=== PATIENT | male | born 1940 | race Caucasian/White ===

== ENCOUNTER 2016-05-31 17:13 | Inpatient (IN) | payer OTHER ==
--- NOTE | 2016-05-31 17:24 | EDPHY ---
H & P Time Seen by Provider: 05/31/16 17:13 HPI/ROS: CHIEF COMPLAINT: Weakness, and fever HISTORY OF PRESENT ILLNESS: Patient self catheterizes and has previous sepsis from UTI. He and his were just in [place] in [facility], and got back yesterday, he was able to walk to the airport and participate in vacation. Today he is much weaker and cannot sit up or get out of bed without assistance. EMS brings him to the emergency department with severe generalized weakness. Associated with fever. No urinary or respiratory symptoms. Weakness is not focal and is generalized in severe. REVIEW OF SYSTEMS: Eye: no change in vision ENT: no sore throat Cardiac: no chest pain or syncope Pulmonary: no cough or SOB Abdomen: no vomiting, diarrhea, abdominal pain Musculoskeletal: no back pain Skin: no rash Neuro: no headache Constitutional: Fever : Chronically self catheterizes from bladder dysfunction, unchanged. A comprehensive 10 point review of systems is otherwise negative aside from elements mentioned in the history of present illness. PAST MEDICAL HISTORY: History and physical dated 12/25/[address] Cannon reviewed by myself. Includes coronary artery disease with stenting, previous UTI, hypertension and GERD, hyperlipidemia, bipolar disorder, bladder cancer, vasectomy, lumbar laminectomy. Social history: Here with his . In [place] they did not go to the jungle and were [place] at the resort, "at the bar and at the pool" General Appearance: Alert and conversant, cooperative. Eyes: No scleral icterus. ENT, Mouth: Dry mucous membranes Respiratory: Normal respiratory effort, breath sounds equal, lungs are clear to auscultation. Cardiovascular: Regular rate and rhythm. Gastrointestinal: Abdomen is soft and non tender. Male does not show skin discoloration. Neurological: Alert and oriented x3. Normally conversant. Patient cannot lift either leg off the bed but can move his toes. He does have bilateral correspondent strength. Skin: Warm and dry, no rashes. Musculoskeletal: No peripheral edema and no joint swelling. No neck stiffness. Psychiatric: Not agitated. Emergency Department course/MDM: Temperature 39.6degrees with decreased strength. Sepsis workup to include blood in urine cultures, labs including lactate. 1810: Microbiology from 12/25/2015 reviewed E coli in the urine sensitive to all , 08/08 E coli in the blood resistant to ampicillin. 1829: Reviewed, sepsis fluid bolus, Invanz chosen as he apparently has severe penicillin allergy and quinolones contraindicated with Seroquel for QT prolongation. Previous chart reviewed, patient received meropenem in July or August of 2015. Discussed with Dr. Raphael Martinez at 6:38 p.m.. Fever came down in the emergency department, was not hypotensive, not septic shock. Emergency department initial lactate was 1.0, less than 2 so not repeated. Smoking Status: Former smoker Constitutional: Initial Vital Signs Temperature (C) 39.6 C H 05/31/16 17:13 Heart Rate 105 H 05/31/16 17:13 Respiratory Rate 20 05/31/16 17:13 Blood Pressure 156/119 H 05/31/16 17:13 O2 Sat (%) 92 05/31/16 17:13 O2 Delivery Mode Room Air Allergies/Adverse Reactions: Sulfa (Sulfonamide Antibiotics) Allergy (Severe, Verified 05/31/16 17:24) Swelling/neck,face,throat neomycin [Neomycin] Allergy (Verified 05/31/16 17:24) Rash Penicillins Allergy (Verified 05/31/16 17:24) Swelling/neck,face,throat ENVIRONMENTAL Allergy (Mild, Uncoded 09/26/11 16:09) Other-Enter Comments Home Medications: Medication Instructions Recorded Armodafinil [Nuvigil 250mg] 250 mg PO Q2D 09/24/11 ARIPiprazole [Abilify 2 mg (*)] 1 mg PO DAILY #0 tab 07/02/15 Liothyronine Sodium [Cytomel 5 mcg 5 mcg PO DAILY@1000 #0 tab 07/02/15 (*)] Lisinopril [Zestril 5 mg (*)] 5 mg PO DAILY #0 tab 07/02/15 Atorvastatin Calcium [Lipitor 40 40 mg PO DAILY 08/09/15 mg (*)] QUEtiapine FUMARATE [Seroquel 25 25 mg PO HS 08/09/15 mg (*)] Aspirin EC [Aspirin EC 81 mg (*)] 81 mg PO DAILY 11/15/15 Cholecalciferol Vit D3 [Vitamin D3 5,000 units PO DAILY 11/15/15 (*)] Fluticasone Nasal [Flonase Nasal 2 sprays NASAL DAILY PRN 11/15/15 [place]] Levothyroxine [Synthroid 25 mcg 25 mcg PO DAILY10 11/15/15 (*)] Loratadine [Claritin 10 mg] 10 mg PO DAILY 11/15/15 Multivitamins [Multivitamin (*)] 1 tab PO DAILY 11/15/15 [place]-3 Fatty Acids [Fish Oil 1000 3,000 mg PO DAILY@12 11/15/15 mg (*)] methYLPHENIDATE HCL [Ritalin 10mg 15 mg PO Q2D@1330 11/15/15 (*)] methYLPHENIDATE HCL [Ritalin 10mg 20 mg PO Q2D@08 11/15/15 (*)] Clopidogrel Bisulfate [Plavix (*)] 75 mg PO DAILY 12/25/15 Omeprazole 40 mg PO DAILY 05/31/16 Medical Decision Making - Diagnostics Imaging: Chest x-ray viewed by myself is negative for pneumonia or infiltrate. Differential Diagnosis: Differential diagnosis considered for weakness including but not limited to electrolyte abnormality, depression, anxiety, CVA, spinal cord abnormality, and infectious causes. Critical Care Time: Critical care time spent by me, Dr. Ramos, exclusively with the care of this patient was 30 minutes, exclusive of PA or ONCOLOGY TECHNICIAN time and exclusive of separate procedures. The organ system at risk was infectious and I ordered multiple labs and diagnostic studies, IV fluid resuscitation, IV antibiotics, discussion with hospitalist Raphael Martinez; to stabilize the patient and prevent worsening of the patient's condition. - Data Points Laboratory Results: Laboratory Results 05/31/16 17:37 05/31/16 17:37 05/31/16 05/31/16 05/31/16 17:50 17:37 17:37 WBC RBC Hgb Hct MCV MCH MCHC RDW Plt Count MPV Neut % (Auto) Lymph % (Auto) Person % (Auto) Eos % (Auto) Baso % (Auto) Nucleat RBC Rel Count Absolute Neuts (auto) Absolute Lymphs (auto) Absolute Monos (auto) Absolute Eos (auto) Absolute Basos (auto) Absolute Nucleated RBC Immature Gran % Immature Gran # PT 13.5 SEC SEC (12.0-15.0) INR 1.04 (0.83-1.16) APTT 29.3 SEC SEC (23.0-38.0) VBG Lactic Acid Sodium 130 mEq/L L mEq/L (134-144) Potassium 4.2 mEq/L mEq/L (3.5-5.2) Chloride 101 mEq/L mEq/L (97-110) Carbon Dioxide 21 mEq/l L mEq/l (22-31) Anion Gap 8 mEq/L mEq/L (8-16) BUN 23 mg/dL mg/dL (7-23) Creatinine 1.3 mg/dL mg/dL (0.7-1.3) Estimated GFR 54 Glucose 99 mg/dL mg/dL (70-100) Calcium 9.5 mg/dL mg/dL (8.5-10.4) Total Bilirubin 1.2 mg/dL mg/dL (0.1-1.4) Urine Color YELLOW Urine Appearance MODERATELY TURBID Urine pH 7.0 (5.0-7.5) Ur Specific Eure 1.011 (1.002-1.030) Urine Protein 2+ H (NEGATIVE) Urine Ketones NEGATIVE (NEGATIVE) Urine Blood 2+ H (NEGATIVE) Urine Nitrate NEGATIVE (NEGATIVE) Urine Bilirubin NEGATIVE (NEGATIVE) Urine Urobilinogen NEGATIVE EU EU (0.2-1.0) Ur Leukocyte Esterase 2+ H (NEGATIVE) Urine RBC 50-182 /hpf H /hpf (0-3) Urine WBC 50-182 /hpf H /hpf (0-3) Ur Epithelial Cells NONE SEEN /lpf /lpf (NONE-1+) Urine Bacteria 1+ /hpf H /hpf (NONE SEEN) Urine Mucus TRACE /lpf /lpf (NONE-1+) Urine Glucose NEGATIVE (NEGATIVE) 05/31/16 05/31/16 17:37 17:37 WBC 11.33 10^3/uL H 10^3/uL (3.80-9.50) RBC 4.54 10^6/uL 10^6/uL (4.40-6.38) Hgb 14.1 g/dL g/dL (13.7-17.5) Hct 39.3 % L % (40.0-51.0) MCV 86.6 fL fL (81.5-99.8) MCH 31.1 pg pg (27.9-34.1) MCHC 35.9 g/dL g/dL (32.4-36.7) RDW 12.6 % % (11.5-15.2) Plt Count 219 10^3/uL 10^3/uL (150-400) MPV 9.3 fL fL (8.7-11.7) Neut % (Auto) 90.8 % H % (39.3-74.2) Lymph % (Auto) 5.8 % L % (15.0-45.0) Person % (Auto) 2.2 % L % (4.5-13.0) Eos % (Auto) 0.4 % L % (0.6-7.6) Baso % (Auto) 0.4 % % (0.3-1.7) Nucleat RBC Rel Count 0.0 % % (0.0-0.2) Absolute Neuts (auto) 10.30 10^3/uL H 10^3/uL (1.70-6.50) Absolute Lymphs (auto) 0.66 10^3/uL L 10^3/uL (1.00-3.00) Absolute Monos (auto) 0.25 10^3/uL L 10^3/uL (0.30-0.80) Absolute Eos (auto) 0.04 10^3/uL 10^3/uL (0.03-0.40) Absolute Basos (auto) 0.04 10^3/uL 10^3/uL (0.02-0.10) Absolute Nucleated RBC 0.00 10^3/uL 10^3/uL (0-0.01) Immature Gran % 0.4 % % (0.0-1.1) Immature Gran # 0.04 10^3/uL 10^3/uL (0.00-0.10) PT INR APTT VBG Lactic Acid 1.0 mmol/L mmol/L (0.7-2.1) Sodium Potassium Chloride Carbon Dioxide Anion Gap BUN Creatinine Estimated GFR Glucose Calcium Total Bilirubin Urine Color Urine Appearance Urine pH Ur Specific Eure Urine Protein Urine Ketones Urine Blood Urine Nitrate Urine Bilirubin Urine Urobilinogen Ur Leukocyte Esterase Urine RBC Urine WBC Ur Epithelial Cells Urine Bacteria Urine Mucus Urine Glucose Medications Given: Discontinued Medications Ertapenem 1 gm/ Sodium (Chloride) 100 mls @ 200 mls/hr IV EDNOW ONE PRN Reason: Protocol Stop: 05/31/16 18:56 Last Admin: 05/31/16 19:15 Dose: 100 mls Sodium Chloride (Ns *For Sepsis Order Set Only*) 2,259 ml 30 ml/kg (2259 ml) IV EDNOW ONE Stop: 05/31/16 18:28 Last Admin: 05/31/16 18:39 Dose: 2,259 ml Departure - Departure Disposition: [facility] Inpatient Acute Clinical Impression: Severe sepsis Urinary tract infection Qualifiers: Urinary tract infection type: site unspecified Hematuria presence: with hematuria Qualified Code(s): N39.0 - Urinary tract infection, site not specified Condition: Fair
[2016-05-31 17:58] LABS: % IMMATURE GRANULYOCYTES 0.4 % (0.0-1.1); ABSOLUTE IMMATURE GRANULOCYTES 0.04 10^3/uL (0.00-0.10); ADD DIFF? NO; ADD MORPH? NO; ADD SCAN? NO; ATYPICAL LYMPHOCYTE FLAG 10 (0-99); FRAGMENT RBC FLAG 0 (0-99); HEMATOCRIT 39.3 % (40.0-51.0); HEMOGLOBIN 14.1 g/dL (13.7-17.5); LEFT SHIFT FLG 0 (0-99); LIPEMIA HEMOLYSIS FLAG 90 (0-99); MEAN CELL HEMOGLOBIN 31.1 pg (27.9-34.1); MEAN CELL HEMOGLOBIN CONCENTR. 35.9 g/dL (32.4-36.7); MEAN CELL VOLUME 86.6 fL (81.5-99.8); MEAN PLATELET VOLUME 9.3 fL (8.7-11.7); PLATELET CLUMPS FLAG 10 (0-99); PLATELET COUNT 219 10^3/uL (150-400); RED BLOOD CELL COUNT 4.54 10^6/uL (4.40-6.38); RED CELL DISTRIBUTION WIDTH 12.6 % (11.5-15.2)
[2016-05-31 18:06] LABS: INR 1.04 (0.83-1.16); PROTIME(PATIENT) 13.5 SEC (12.0-15.0)
[2016-05-31 18:17] LABS: COLOR YELLOW; LEUKOCYTE ESTERASE,URINE 2+ (NEGATIVE); NITRITE,URINE NEGATIVE (NEGATIVE)
[2016-05-31 18:18] LABS: ANION GAP 8 mEq/L (8-16); BILIRUBIN,TOTAL 1.2 mg/dL (0.1-1.4); CALCIUM 9.5 mg/dL (8.5-10.4); CARBON DIOXIDE 21 mEq/l (22-31); CHLORIDE 101 mEq/L (97-110); CREATININE 1.3 mg/dL (0.7-1.3); GLOMERULAR FILTRATION RATE 54; GLUCOSE 99 mg/dL (70-100); POTASSIUM 4.2 mEq/L (3.5-5.2); SODIUM 130 mEq/L (134-144)
[2016-05-31 18:22] LABS: APTT 29.3 SEC (23.0-38.0)
[2016-05-31] MEDS ORDERED: NS 1,000 ML BAG *FOR SEPSIS ORDER SET ONLY IV ONE (18:27)
[2016-05-31] MEDS ORDERED: ERTAPENEM 1 GM in NS 100 ML IV ONE (18:27)
[2016-05-31 18:28] LABS: BACTERIA 1+ /hpf (NONE SEEN); MUCUS TRACE /lpf (NONE-1+); RBC,URINE 50-182 /hpf (0-3); WBC,URINE 50-182 /hpf (0-3)
[2016-05-31] MEDS ORDERED: ACETAMINOPHEN 500 MG TAB ONE (18:31)
[2016-05-31] MEDS ORDERED: oxyCODONE IR 5 MG TAB PO PRN (19:55)
[2016-05-31] MEDS ORDERED: ACETAMINOPHEN 325 MG TAB PO PRN (19:55)
[2016-05-31] MEDS ORDERED: ONDANSETRON DISINTEGRATING 4 MG TAB PO PRN (19:55)
[2016-05-31] MEDS ORDERED: ONDANSETRON 4 MG/2 ML VIAL IVP PRN (19:55)
[2016-05-31] MEDS ORDERED: FLUTICASONE NASAL 120 SPRAYS/16 GM MDI NS PRN (20:21)
[2016-05-31] MEDS: NS 1,000 ML IV SCH (21:16)
[2016-05-31] MEDS: QUEtiapine FUMARATE 25 MG TAB PO SCH (21:18)
--- NOTE | 2016-05-31 22:44 | GHP ---
[f rep st] HISTORY AND PHYSICAL DATE OF ADMISSION: 05/31/2016 The patient is a pleasant 75-year-old gentleman with a history of coronary artery disease and urinar y catheterization who presents with fever. He was traveling in [place] enjoying himself. He felt po benjamin this morning and then returned home and was febrile with some generalized weakness and chills a nd some vague abdominal pain. He has had no urgency or dysuria. He is catheter dependent. He did not have to reuse catheters when he was in [place]. He was admitted here in December prior to this with a similar complaint, but otherwise has done well. He has had no nausea or vomiting, perhaps a bit of shortness of breath. He has not had any chest pain. Denies any heart failure symptoms. REVIEW OF SYSTEMS: Ten point review of systems conducted and negative except as noted in the HPI. PAST MEDICAL HISTORY: 1. Coronary artery disease status post stent x3 in November of 2015. 2. Dilated ascending aorta. 3. Urinary catheter dependence with UTI. 4. Hyperlipidemia. 5. Hypertension. 6. GERD. 7. Sleep apnea with CPAP. 8. Bipolar. 9. Bladder cancer. 10. Interstitial cystitis. 11. Hypothyroidism. 12. Vasectomy. 13. Back pain with prior laminectomies. 14. He has anaphylaxis to penicillin and sulfa. SOCIAL HISTORY: Former smoker, . Drinks about 1 drink a night. FAMILY HISTORY: Notable for a sister with diabetes. ALLERGIES: Sulfa and penicillins. MEDICATIONS: At home, Ritalin, quetiapine, omeprazole, fish oil, multivitamin, loratadine, lisinopr il, liothyronine, levothyroxine, Flonase, clopidogrel, vitamin D3, atorvastatin, aspirin, armodafini l, which is Nuvigil and aripiprazole. PHYSICAL EXAM: VITAL SIGNS: Temp 39.6, blood pressure 160/119, pulse 105, , 98% on room air. He subsequently defervesced, and his pulse is 97, blood pressure 112/75. GENERAL: No acute d istress. HEENT: Sclerae anicteric. Oropharynx clear. Mucous membranes are moist. NECK: Supple without lymphadenopathy or JVD. LUNGS: Clear to auscultation bilaterally. HEART: S1, S2. ABDOME N: Soft, nontender, nondistended. EXTREMITIES: Lower extremities show trace edema bilaterally. C monroy are nontender. SKIN: Without rash, although he is sunburned. NEUROLOGIC: Exam is grossly n onfocal. LABORATORY DATA: White count 11.3, hematocrit 39, platelets are 219,000. Coag's are normal. Venou s lactate is 1. Sodium 130, potassium 4.2, chloride 101, bicarb 21, BUN 23, creatinine 1.3, which i s about his baseline. Glucose 99. UA shows 50-180 red cells, 2+ leukocyte esterase. Chest x-ray i nterpreted by me shows bronchitis, no pneumonia. I have discussed the case with Dr. Mark Ramos. ASSESSMENT/PLAN: A 75-year-old gentleman with likely catheter associated urinary tract infection. 1. Complicated urinary tract infection. 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 His urine culture from his last admission grew out pansensitive Escherichia c mackenzie. Given his anaphylaxis to penicillins, he was started on ertapenem, which he seems to be tolera ting that and will continue. There is some concern about prolonged QT interval with a 4.1 plus ____ . 2. Question sepsis. He has a normal lactate, and his creatinine is at baseline. He does have an i nfection and fever. This is consistent with systemic inflammatory response syndrome. He did receiv e the sepsis directed fluid bolus. He remains hemodynamically stable. Will continue IV fluids. 3. Coronary artery disease. Continue his aspirin and Plavix. Not on a beta-tia. 4. Bipolar. Continue his medications. 5. Prophylaxis, moderate risk. Low-molecular weight heparin indicated. 6. Disposition, inpatient status. /[id number]/MODL
[2016-06-01 05:46] LABS: % IMMATURE GRANULYOCYTES 0.4 % (0.0-1.1); ABSOLUTE IMMATURE GRANULOCYTES 0.06 10^3/uL (0.00-0.10); ADD DIFF? NO; ADD MORPH? NO; ADD SCAN? NO; ATYPICAL LYMPHOCYTE FLAG 0 (0-99); FRAGMENT RBC FLAG 0 (0-99); HEMATOCRIT 37.4 % (40.0-51.0); LEFT SHIFT FLG 10 (0-99); LIPEMIA HEMOLYSIS FLAG 90 (0-99); MEAN CELL HEMOGLOBIN 30.7 pg (27.9-34.1); MEAN CELL HEMOGLOBIN CONCENTR. 34.8 g/dL (32.4-36.7); MEAN CELL VOLUME 88.2 fL (81.5-99.8); MEAN PLATELET VOLUME 9.7 fL (8.7-11.7); PLATELET CLUMPS FLAG 0 (0-99); PLATELET COUNT 216 10^3/uL (150-400); RED BLOOD CELL COUNT 4.24 10^6/uL (4.40-6.38); RED CELL DISTRIBUTION WIDTH 13.1 % (11.5-15.2)
[2016-06-01 05:50] LABS: ANION GAP 7 mEq/L (8-16); CALCIUM 8.5 mg/dL (8.5-10.4); CARBON DIOXIDE 20 mEq/l (22-31); CHLORIDE 108 mEq/L (97-110); CREATININE 1.2 mg/dL (0.7-1.3); GLOMERULAR FILTRATION RATE 59; GLUCOSE 96 mg/dL (70-100); POTASSIUM 4.2 mEq/L (3.5-5.2); SODIUM 135 mEq/L (134-144)
[2016-06-01] MEDS: ENOXAPARIN 40 MG/0.4 ML SYR SC SCH (08:41)
[2016-06-01] MEDS: CHOLECALCIFEROL VIT D3 2,000 UNITS TAB/CAP PO SCH (08:41)
[2016-06-01] MEDS: ATORVASTATIN CALCIUM 40 MG TAB PO SCH (08:41)
[2016-06-01] MEDS: PANTOPRAZOLE SODIUM 40 MG TAB PO SCH (08:42)
[2016-06-01] MEDS: CETIRIZINE 10 MG TAB PO SCH (08:42)
[2016-06-01] MEDS: ASPIRIN EC 81 MG TAB PO SCH (08:42)
[2016-06-01] MEDS: MULTIVITAMINS 1 EACH TAB PO SCH (08:42)
[2016-06-01] MEDS: CLOPIDOGREL BISULFATE 75 MG TAB PO SCH (08:42)
[2016-06-01] MEDS: LISINOPRIL 5 MG TAB PO SCH (08:43)
[2016-06-01] MEDS: ARIPiprazole 2 MG TAB PO SCH (08:43)
[2016-06-01] MEDS: LIOTHYRONINE SODIUM 5 MCG TAB PO SCH (08:43)
[2016-06-01] MEDS: LEVOTHYROXINE 25 MCG TAB PO SCH (08:43)
[2016-06-01] MEDS: ERTAPENEM 1 GM in NS 100 ML IV SCH (08:46)
[2016-06-01] MEDS: OMEGA-3 FATTY ACIDS 1,000 MG CAP PO SCH (16:50)
--- NOTE | 2016-06-01 18:30 | HOSPPROG ---
Hospitalist Progress Note Assessment/Plan: Assessment: 75-year-old male presents with sepsis secondary to catheter associated urinary tract infection Plan: 1. Sepsis. Acute, new problem this provider, further workup is indicated. Evidenced by sepsis 2 criteria including tachycardia, fever, leukocytosis which is worsening today, clear evidence of infection notably bacteremia, resulting in autonomic dysregulation in the setting of infection -status post IV fluid bolus -worsening leukocytosis today, continue to monitor CBC -chest x-ray demonstrating peribronchial thickening but no focal infiltrate, personally interpreted -get renal ultrasound to rule out perinephric abscess and indwelling source -get EKG to ensure the patient does not have a tachyarrhythmia 2. Catheter associated urinary tract infection. Present on arrival, secondary to chronic straight catheterizations resulting introduction of bacteria into the urinary system, review of outside records demonstrates that patient has had pansensitive E coli in the past as well as Staph aureus which was methicillin sensitive and most likely a contaminant -continue straight catheterizations as needed -continue on Invanz -urine culture currently pending 3. E coli bacteremia. Secondary to a urinary source. Getting ultrasound to rule out perinephric or summer ladder abscess given his clinical worsening -day 2 of Invanz, repeat blood cultures tomorrow which will be the new start date -can tailor antibiotics based on sensitivity -will get Infectious Disease consultation in a.m. 4. Hyponatremia. Acute, most likely secondary to hypovolemia in the setting of sepsis, improved with IV fluids 5. Coronary artery disease. Chronic, continue home medications 6. Chronic kidney disease stage 3. Baseline serum creatinine level around 1.3, currently near baseline Diet. Regular diet as tolerates Prophylaxis. High risk patient given mobility, with heparin subcu Code. Full Disposition. Anticipated discharge uncertain this time, remains clinically unstable Subjective: Patient reports that he is feeling worse today, less energy, less mobility, back Objective: Vital Signs Temp Pulse Resp BP Pulse Ox 36.9 C 89 20 149/92 H 97 06/01/16 11:52 06/01/16 16:00 06/01/16 16:00 06/01/16 16:00 06/01/16 16:00 Laboratory Results 06/01/16 05:05 06/01/16 05:05 05/31/16 06/01/16 06/02/16 05:59 05:59 05:59 Intake Total 3909 1500 Output Total 1900 Balance 2008 1500 PT 13.5 SEC (12.0-15.0) 05/31/16 17:37 INR 1.04 (0.83-1.16) 05/31/16 17:37 - Physical Exam Constitutional: appears nourished, uncomfortable, No not in pain, No chronically ill appearing Cardiovascular: other (Irregularity with ectopic beats), No systolic murmur, No tachycardia, No edema Respiratory: no respiratory distress, no rales or rhonchi, clear to auscultation Gastrointestinal: normoactive bowel sounds, no palpable masses, tenderness ( Over the left CVA), No distension Neurologic: AAOx3, sensation intact bilaterally, No weakness (Motor strength 5/ 5 bilateral lower extremity) Psychiatric: interacting appropriately, not anxious, thought process linear, flat affect ICD10 Worksheet Patient Problems: Problems Problem Status Onset Spinal stenosis, lumbar region, with neurogenic claudication Acute Urinary tract infection Acute Hyponatremia Acute Severe sepsis Acute
[2016-06-01] MEDS: QUEtiapine FUMARATE 25 MG TAB PO SCH (20:13)
[2016-06-02 05:58] LABS: % IMMATURE GRANULYOCYTES 0.4 % (0.0-1.1); ABSOLUTE IMMATURE GRANULOCYTES 0.04 10^3/uL (0.00-0.10); ADD DIFF? NO; ADD MORPH? NO; ADD SCAN? NO; ATYPICAL LYMPHOCYTE FLAG 20 (0-99); FRAGMENT RBC FLAG 0 (0-99); HEMATOCRIT 34.8 % (40.0-51.0); HEMOGLOBIN 12.2 g/dL (13.7-17.5); LEFT SHIFT FLG 0 (0-99); LIPEMIA HEMOLYSIS FLAG 90 (0-99); MEAN CELL HEMOGLOBIN 31.4 pg (27.9-34.1); MEAN CELL HEMOGLOBIN CONCENTR. 35.1 g/dL (32.4-36.7); MEAN CELL VOLUME 89.7 fL (81.5-99.8); MEAN PLATELET VOLUME 9.4 fL (8.7-11.7); PLATELET CLUMPS FLAG 0 (0-99); PLATELET COUNT 206 10^3/uL (150-400); RED BLOOD CELL COUNT 3.88 10^6/uL (4.40-6.38); RED CELL DISTRIBUTION WIDTH 13.1 % (11.5-15.2)
[2016-06-02 06:17] LABS: ANION GAP 6 mEq/L (8-16); CALCIUM 8.2 mg/dL (8.5-10.4); CARBON DIOXIDE 20 mEq/l (22-31); CHLORIDE 106 mEq/L (97-110); CREATININE 1.3 mg/dL (0.7-1.3); GLOMERULAR FILTRATION RATE 54; GLUCOSE 99 mg/dL (70-100); POTASSIUM 4.1 mEq/L (3.5-5.2); SODIUM 132 mEq/L (134-144)
[2016-06-02] MEDS: ATORVASTATIN CALCIUM 40 MG TAB PO SCH (07:57)
[2016-06-02] MEDS: PANTOPRAZOLE SODIUM 40 MG TAB PO SCH (07:57)
[2016-06-02] MEDS: CETIRIZINE 10 MG TAB PO SCH (07:58)
[2016-06-02] MEDS: ASPIRIN EC 81 MG TAB PO SCH (07:58)
[2016-06-02] MEDS: CHOLECALCIFEROL VIT D3 2,000 UNITS TAB/CAP PO SCH (07:58)
[2016-06-02] MEDS: ARIPiprazole 2 MG TAB PO SCH (07:59)
[2016-06-02] MEDS: MULTIVITAMINS 1 EACH TAB PO SCH (07:59)
[2016-06-02] MEDS: LISINOPRIL 5 MG TAB PO SCH (07:59)
[2016-06-02] MEDS: CLOPIDOGREL BISULFATE 75 MG TAB PO SCH (07:59)
[2016-06-02] MEDS: ERTAPENEM 1 GM in NS 100 ML IV SCH (08:01)
[2016-06-02] MEDS: ENOXAPARIN 40 MG/0.4 ML SYR SC SCH (08:01)
[2016-06-02] MEDS ORDERED: Armodafinil [Nuvigil] 250 MG PO SCH (09:00)
--- NOTE | 2016-06-02 09:24 | CPEKG ---
Heart Rate: 90 RR Interval: 667 P-R Interval: 148 QRSD Interval: 74 QT Interval: 348 QTC Interval: 426 P [place]: 78 QRS [place]: 55 T Wave [place]: 51 EKG Severity - ABNORMAL ECG - EKG Impression: SINUS RHYTHM EKG Impression: MULTIPLE ATRIAL PREMATURE COMPLEXES Electronically Signed By: Luis Felipe Gregg 01-Jun-2016 23:46:55
[2016-06-02] MEDS: LIOTHYRONINE SODIUM 5 MCG TAB PO SCH (11:16)
[2016-06-02] MEDS: LEVOTHYROXINE 25 MCG TAB PO SCH (11:16)
[2016-06-02] MEDS: OMEGA-3 FATTY ACIDS 1,000 MG CAP PO SCH (11:55)
[2016-06-02] MEDS: NS 1,000 ML IV SCH (11:58)
--- NOTE | 2016-06-02 12:22 | HOSPPROG ---
Hospitalist Progress Note Assessment/Plan: Assessment: 75-year-old male presents with sepsis secondary to catheter associated urinary tract infection Plan: 1. Sepsis. Acute, evidenced by sepsis 2 criteria including tachycardia, fever, leukocytosis, clear evidence of infection notably bacteremia, resulting in autonomic dysregulation in the setting of infection -status post IV fluid bolus -cont monitor CBC -chest x-ray demonstrating peribronchial thickening but no focal infiltrate, personally interpreted -KATHY w/o perinephric abscess -EKG w/ APCs, NSR 2. Catheter associated urinary tract infection. Present on arrival, secondary to chronic straight catheterizations resultant introduction of bacteria into the urinary system -E coli rivero-sensitive -continue straight catheterizations as needed -continue on Invanz -d/w patient outpt urological evaluation for possible SP catheter, although this will not eliminate potential for CAUTI 3. E coli bacteremia. Secondary to a urinary source -day 3 of Invanz, repeat blood cultures tomorrow which will be the new start date -repeat BCx this AM -if neg tomorrow, plan on 14 days fluoroquinalone orally -appreciate ID consultation, patient will need outpt f/u 4. Hyponatremia. Acute, most likely secondary to hypovolemia in the setting of sepsis, improved with IV fluids 5. Coronary artery disease. Chronic, continue home medications 6. Chronic kidney disease stage 3. Baseline serum creatinine level around 1.3, currently near baseline Diet. Regular diet as tolerates Prophylaxis. High risk patient given mobility, with heparin subcu Code. Full Disposition. Anticipated discharge uncertain this time, requiring neg BCx Subjective: reports improved strength, no BMs Objective: Vital Signs Temp Pulse Resp BP Pulse Ox 37.1 C 83 15 130/83 H 95 06/02/16 07:18 06/02/16 07:18 06/02/16 07:18 06/02/16 07:59 06/02/16 07:18 Laboratory Results 06/02/16 05:15 06/02/16 05:15 06/01/16 06/02/16 06/03/16 05:59 05:59 05:59 Intake Total 3909 2950 Output Total 3810 347 4364 Balance 2008 2250 -1400 PT 13.5 SEC (12.0-15.0) 05/31/16 17:37 INR 1.04 (0.83-1.16) 05/31/16 17:37 - Physical Exam Constitutional: no apparent distress, appears nourished, not in pain, No uncomfortable Cardiovascular: other (irregular w/ ectopic beats), No systolic murmur, No tachycardia, No edema Respiratory: no respiratory distress, no rales or rhonchi, clear to auscultation Gastrointestinal: normoactive bowel sounds, soft, non-tender abdomen, no palpable masses Neurologic: AAOx3, sensation intact bilaterally Psychiatric: interacting appropriately, not anxious, not encephalopathic, thought process linear, flat affect ICD10 Worksheet Patient Problems: Problems Problem Status Onset Spinal stenosis, lumbar region, with neurogenic claudication Acute Urinary tract infection Acute Hyponatremia Acute Severe sepsis Acute
--- NOTE | 2016-06-02 14:05 | GCON ---
[f rep st] CONSULTATION INFECTIOUS DISEASE CONSULTATION DATE OF CONSULTATION: 06/02/2016 REFERRING PHYSICIAN: Ritchie Chew MD REASON FOR CONSULTATION: Sepsis with Escherichia coli bacteremia. HISTORY OF PRESENT ILLNESS: The patient is a 75-year-old male with a past medical history of chroni c ongoing in-and-out urinary catheterization, as well as a prior history of E coli bacteremia in 201 6, whom I am asked to see in consultation for sepsis and E coli bacteremia. The patient recently baron d travel to [facility] and felt well while he traveled. Upon returning home, he developed feve r and shaking chills. This was associated with cloudy urine and lower abdominal pain. The patient typically catheterizes himself approximately 5 times per day and was continuing to do so during the course of his symptoms. He had significant associated malaise and fatigue. He does not note any na usea, vomiting, diarrhea, or flank pain. His appetite has been decreased. He did describe having s ome shortness of breath. At the time of presentation, he was noted to have a leukocytosis with left shift and a temperature to 39.6. Blood cultures were obtained and both sets are now showing growth of E coli. A urine culture is also showing growth of greater than 100,000 E coli which is a rivero lucia sceptible organism. The patient has an underlying history of allergy to both penicillin and sulfona mides, and has been treated empirically with ertapenem which he has been tolerating well. He feels like he has not shown significant improvement yet, although his notes he is markedly improved. An ultrasound was performed and shows no evidence of hydronephrosis or abscess formation, but does show a chronic atrophied left kidney. Given the above findings, I am now asked to assist in his shai oing management. 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 PAST SURGICAL HISTORY: Lumbar spine surgery, surgery for bladder cancer but not complete cystectomy . CURRENT MEDICATIONS: Ertapenem 1 g IV daily, Abilify 1 mg p.o. daily, aspirin 81 mg p.o. daily, Lip itor 40 mg p.o. daily, Zyrtec 10 mg p.o. daily, vitamin D 5000 units p.o. daily, Plavix 75 mg p.o. d aily, Lovenox 40 mg subcu daily, Flonase 2 sprays each nostril daily, Synthroid 25 mcg p.o. daily, C ytomel 5 mcg p.o. daily, lisinopril 5 mg p.o. daily, Ritalin 20 mg every other day and 15 mg in the afternoon every other day, Nuvigil 250 mg p.o. every other day, multivitamin p.o. daily, fish oil 30 00 mg p.o. daily, Protonix 40 mg p.o. daily, Seroquel 25 mg p.o. q.h.s. ALLERGIES: Penicillin and sulfonamide associated with swelling. SOCIAL HISTORY: The patient does not smoke. He drinks alcohol socially. No drug use. Recent gerardo el to [facility]. FAMILY HISTORY: Diabetes mellitus. REVIEW OF SYSTEMS: Outside of that noted in the HPI, the remainder of a 10-system review is unremar kable. PHYSICAL EXAMINATION: VITAL SIGNS: Temperature 36.7, heart rate 68, respiratory rate 16, blood pre ssure 134/100, oxygen saturation 94% on room air. GENERAL: Patient is well nourished, well develop ed, in no acute distress. He appears nontoxic. HEENT: There is no scleral icterus, conjunctival i njection, or conjunctival petechiae. Oropharynx is clear without lesions. Patient is edentulous. Mucous membranes are moist. There is no nasal discharge. There is no tenderness over the frontal o r maxillary mastoid area. NECK: Supple without lymphadenopathy or palpable thyromegaly. CHEST: C lear to auscultation bilaterally without adventitious sounds. The respiratory effort is normal. CA RDIOVASCULAR: Regular rate and rhythm without murmurs, gallops, rubs. ABDOMEN: Soft, nontender, n ondistended. There is no palpable organomegaly. Bowel sounds are present. BACK: There is no CVA tenderness bilaterally. MUSCULOSKELETAL: There is no cyanosis, clubbing, or edema. SKIN: No rash es present. There are no stigmata of endocarditis. The skin is warm and dry to touch. NEUROLOGIC: The patient is alert and interacts appropriately to the examiner. Cranial nerves II through XII a re grossly intact. Sensation is grossly intact. LYMPHATICS: No cervical or supraclavicular nodes. LABORATORY DATA: White blood cell count 9.0, hematocrit 34.8, platelets 206, neutrophils 85%. Serum creatinine is 1.3, venous lactate is 1.06. Urinalysis shows 50-182 red blood cells and 50-182 white blood cells. Blood cultures x2 sets with growth of E coli with susceptibilities pending; urine culture greater th an 100,000 rivero susceptible E coli. Ultrasound as outlined above. Chest x-ray without evidence of pneumonia. EKG shows a Q-T interval of 426. IMPRESSION: Sepsis due to Escherichia coli bacteremia of urinary etiology associated with self-inte rmittent catheterization: Urine culture shows rivero susceptible isolate, which suggests similar findi ngs will be present in the blood isolate. Continue ertapenem while taking p.o. intake poorly. Shou ld be able to complete therapy with oral quinolone if susceptibilities shows same findings on blood isolate. Excellent oral bioavailability allows for this, and he has tolerated it in the past as ronda l. Could monitor Q-T interval if concerns about Q-T prolongation are present with outpatient EKG, a nd he has regular followup with Dr. Diana. Repeat blood cultures are now pending to document kiana ring of bacteremia. RECOMMENDATIONS: 1. Agree with continued ertapenem. 2. Follow up repeat blood cultures to document clearing of bacteremia. 3. Will review further with Hospital Service to ensure there are no concerns regarding his Q-T inte rval and fluoroquinolone use. Thank you for this consultation. We will continue to follow the patient with you. /[id number]/MODL
[2016-06-02] MEDS: QUEtiapine FUMARATE 25 MG TAB PO SCH (20:38)
[2016-06-02 23:04] VITALS: RESP 16
[2016-06-03 05:09] LABS: % IMMATURE GRANULYOCYTES 0.2 % (0.0-1.1); ABSOLUTE IMMATURE GRANULOCYTES 0.01 10^3/uL (0.00-0.10); ADD DIFF? NO; ADD MORPH? NO; ADD SCAN? NO; ATYPICAL LYMPHOCYTE FLAG 70 (0-99); FRAGMENT RBC FLAG 0 (0-99); HEMATOCRIT 33.8 % (40.0-51.0); HEMOGLOBIN 11.7 g/dL (13.7-17.5); LEFT SHIFT FLG 0 (0-99); LIPEMIA HEMOLYSIS FLAG 90 (0-99); MEAN CELL HEMOGLOBIN 29.8 pg (27.9-34.1); MEAN CELL HEMOGLOBIN CONCENTR. 34.6 g/dL (32.4-36.7); MEAN CELL VOLUME 86.2 fL (81.5-99.8); MEAN PLATELET VOLUME 9.2 fL (8.7-11.7); PLATELET CLUMPS FLAG 0 (0-99); PLATELET COUNT 189 10^3/uL (150-400); RED BLOOD CELL COUNT 3.92 10^6/uL (4.40-6.38); RED CELL DISTRIBUTION WIDTH 12.8 % (11.5-15.2)
[2016-06-03 05:41] LABS: ANION GAP 7 mEq/L (8-16); CALCIUM 8.3 mg/dL (8.5-10.4); CARBON DIOXIDE 20 mEq/l (22-31); CHLORIDE 107 mEq/L (97-110); CREATININE 1.3 mg/dL (0.7-1.3); GLOMERULAR FILTRATION RATE 54; GLUCOSE 101 mg/dL (70-100); POTASSIUM 3.9 mEq/L (3.5-5.2); SODIUM 134 mEq/L (134-144)
[2016-06-03 08:41] VITALS: BP 148/98; PULSE 80; TEMP 97.8; O2SAT 97
[2016-06-03] MEDS: LISINOPRIL 5 MG TAB PO SCH (09:42)
[2016-06-03] MEDS: LEVOTHYROXINE 25 MCG TAB PO SCH (09:43)
[2016-06-03] MEDS: ARIPiprazole 2 MG TAB PO SCH (09:43)
[2016-06-03] MEDS: CHOLECALCIFEROL VIT D3 2,000 UNITS TAB/CAP PO SCH (09:44)
[2016-06-03] MEDS: MULTIVITAMINS 1 EACH TAB PO SCH (09:44)
[2016-06-03] MEDS: PANTOPRAZOLE SODIUM 40 MG TAB PO SCH (09:44)
[2016-06-03] MEDS: LIOTHYRONINE SODIUM 5 MCG TAB PO SCH (09:45)
[2016-06-03] MEDS: CLOPIDOGREL BISULFATE 75 MG TAB PO SCH (09:45)
[2016-06-03] MEDS: ASPIRIN EC 81 MG TAB PO SCH (09:45)
[2016-06-03] MEDS: ATORVASTATIN CALCIUM 40 MG TAB PO SCH (09:45)
[2016-06-03] MEDS: ENOXAPARIN 40 MG/0.4 ML SYR SC SCH (09:46)
[2016-06-03] MEDS: ERTAPENEM 1 GM in NS 100 ML IV SCH (09:46)
[2016-06-03] MEDS: CETIRIZINE 10 MG TAB PO SCH (09:46)
[2016-06-03] MEDS: OMEGA-3 FATTY ACIDS 1,000 MG CAP PO SCH (09:46)
--- NOTE | 2016-06-03 11:19 | PCMIDPN ---
Assessment/Plan: Assessment/Plan: * Sepsis due to E coli bacteremia of urinary etiology: Significant clinical improvement. White blood cell count and temperature have normalized. Repeat blood cultures are no growth to date. Blood and urine isolates are rivero susceptible. Plan to complete 10 days of oral levofloxacin 750 mg p.o. daily. Okay for discharge from Infectious Disease perspective as long as he is meeting his ADLs. Patient will follow-up with his PCP post discharge and I have given them my card in the event desires additional Infectious Disease input. Side effects of levofloxacin including potential for tendinopathy and C difficile colitis discussed. 06/03/16 11:16 06/03/16 11:19 Subjective: Feels significantly improved. No nausea or vomiting and appetite slowly improving. Objective: Vital Signs Temp Pulse Resp BP Pulse Ox 36.6 C 80 16 148/98 H 97 06/03/16 08:41 06/03/16 08:41 06/03/16 08:41 06/03/16 09:42 06/03/16 08:41 Laboratory Results 06/03/16 04:56 06/03/16 04:56 06/02/16 06/03/16 06/04/16 05:59 05:59 05:59 Intake Total 2950 2100 Output Total 700 2400 Balance 2250 -300 Ertapenem # 4 Blood cultures 06/02/2016 no growth - Physical Exam General Appearance: alert, no apparent distress EENT: No scleral icterus Respiratory: lungs clear, No respiratory distress Cardiac/Chest: regular rate, rhythm Abdomen: non-tender, No distended Back: No CVA tenderness ICD10 Worksheet Patient Problems: Problems Problem Status Onset Severe sepsis Acute Urinary tract infection Acute Hyponatremia Acute Spinal stenosis, lumbar region, with neurogenic claudication Acute
--- NOTE | 2016-06-03 11:54 | HOSPPROG ---
Hospitalist Progress Note Assessment/Plan: Assessment: 75-year-old male presents with sepsis secondary to catheter associated urinary tract infection Plan: 1. Sepsis. Acute, evidenced by sepsis 2 criteria including tachycardia, fever, leukocytosis, clear evidence of infection notably bacteremia, resulting in autonomic dysregulation in the setting of infection -status post IV fluid bolus -cont monitor CBC -chest x-ray demonstrating peribronchial thickening but no focal infiltrate, personally interpreted -KATHY w/o perinephric abscess -EKG w/ APCs, NSR 2. Catheter associated urinary tract infection. Present on arrival, secondary to chronic straight catheterizations resultant introduction of bacteria into the urinary system -E coli rivero-sensitive -continue straight catheterizations as needed -d/w patient outpt urological evaluation for possible SP catheter (Dr. Finn), although this will not eliminate potential for CAUTI 3. E coli bacteremia. Secondary to a urinary source -s/p 4 days of Invanz, 06/02 cx NGTD -adjust to levofloxacin 750mg x [address] Keene -appreciate ID consultation -severely deconditioned, currently working vigorously w/ PT but remains unable to safely transfer/stairs w/o assist, unable to safely transition home today -will continue to work w/ PT to improve energy/function over next 24hrs w/ goal to be safe for DC home w/ home care on 06/04 4. Hyponatremia. Acute, most likely secondary to hypovolemia in the setting of sepsis, improved with IV fluids 5. Coronary artery disease. Chronic, continue home medications 6. Chronic kidney disease stage 3. Baseline serum creatinine level around 1.3, currently near baseline Diet. Regular diet as tolerates Prophylaxis. High risk patient given mobility, with heparin subcu Code. Full Disposition. Anticipated discharge 06/04, see above Subjective: Patient required assist with transfer this morning and feels like energy is low today and not at baseline Objective: Vital Signs Temp Pulse Resp BP Pulse Ox 36.6 C 80 16 148/98 H 97 06/03/16 08:41 06/03/16 08:41 06/03/16 08:41 06/03/16 09:42 06/03/16 08:41 Laboratory Results 06/03/16 04:56 06/03/16 04:56 06/02/16 06/03/16 06/04/16 05:59 05:59 05:59 Intake Total 2950 2100 Output Total 700 2400 Balance 2250 -300 PT 13.5 SEC (12.0-15.0) 05/31/16 17:37 INR 1.04 (0.83-1.16) 05/31/16 17:37 - Time Spent With Patient Time Spent with Patient: greater than 35 minutes Time Spent with Patient: Greater than 35 minutes spent on this patients care, greater than 50% of time spent counseling, educating, and coordinating care regarding the above mentioned plan. - Physical Exam Constitutional: no apparent distress, not in pain, No uncomfortable Cardiovascular: regular rate and rhythym, no murmur, rub, or gallop, No tachycardia, No edema Respiratory: no respiratory distress, no rales or rhonchi, clear to auscultation Gastrointestinal: normoactive bowel sounds, soft, non-tender abdomen, no palpable masses Neurologic: AAOx3, sensation intact bilaterally Psychiatric: interacting appropriately, not anxious, not encephalopathic, thought process linear ICD10 Worksheet Patient Problems: Problems Problem Status Onset Spinal stenosis, lumbar region, with neurogenic claudication Acute Urinary tract infection Acute Hyponatremia Acute Severe sepsis Acute
--- NOTE | 2016-06-03 15:49 | PDIAF ---
- Diagnosis Diagnosis: Bacteremia, E coli sepsis Code Status: Full Code - Medication Management Discharge Medications: Medications to Continue on Transfer Armodafinil [Nuvigil 250mg] 250 mg PO Q2D 09/24/11 [Last Taken 05/29/16] ARIPiprazole [Abilify 2 mg (*)] 1 mg PO DAILY #0 tab 07/02/15 [Last Taken 08:00] Liothyronine Sodium [Cytomel 5 mcg (*)] 5 mcg PO DAILY@1000 #0 tab 07/02/15 [ Last Taken 05/31/16 08:00] Lisinopril [Zestril 5 mg (*)] 5 mg PO DAILY #0 tab 07/02/15 [Last Taken 08:00] Atorvastatin Calcium [Lipitor 40 mg (*)] 40 mg PO DAILY 08/09/15 [Last Taken 08:00] QUEtiapine FUMARATE [Seroquel 25 mg (*)] 25 mg PO HS 08/09/15 [Last Taken ] Aspirin EC [Aspirin EC 81 mg (*)] 81 mg PO DAILY 11/15/15 [Last Taken 05/31/16 08:00] Cholecalciferol Vit D3 [Vitamin D3 (*)] 5,000 units PO DAILY 11/15/15 [Last Taken 05/31/16 08:00] Fluticasone Nasal [Flonase Nasal [place]] 2 sprays NASAL DAILY PRN 11/15/15 [Last Taken 05/31/16 08:00] Levothyroxine [Synthroid 25 mcg (*)] 25 mcg PO DAILY10 11/15/15 [Last Taken 08:00] Loratadine [Claritin 10 mg] 10 mg PO DAILY 11/15/15 [Last Taken 05/31/16 08:00] Multivitamins [Multivitamin (*)] 1 tab PO DAILY 11/15/15 [Last Taken 05/31/16 08 :00] [place]-3 Fatty Acids [Fish Oil 1000 mg (*)] 3,000 mg PO DAILY@12 11/15/15 [Last Taken 05/31/16 08:00] methYLPHENIDATE HCL [Ritalin 10mg (*)] 15 mg PO Q2D@1330 11/15/15 [Last Taken 08:00] methYLPHENIDATE HCL [Ritalin 10mg (*)] 20 mg PO Q2D@08 11/15/15 [Last Taken 08:00] Clopidogrel Bisulfate [Plavix (*)] 75 mg PO DAILY 12/25/15 [Last Taken 05/31/16 08:00] Omeprazole 40 mg PO DAILY 05/31/16 [Last Taken 05/31/16] Acetaminophen [Tylenol 325mg (*)] 650 mg PO Q4HRS PRN #0 tab 06/03/16 [Last Taken Unknown] levOFLOXACIN [levAQUIN (*)] 750 mg PO DAILY AT 10AM #10 tab 06/03/16 [Last Taken Unknown] Human Resource Manager Antibiotics: Levofloxacin 750mg daily x 10 days Detention Antibiotic Stop Date: 06/14/16 Discharge Medications: Refer to the Discharge Home Medication list for PRN reason. PICC Care - Routine: N/A - Orders Services needed: Home Care, Registered Nurse, Physical Therapy Home Care Face to Face: I certify that this patient was under my care and that I had the required [id number] encounter meeting the encounter requirements on the discharge day. My findings support the fact that the patient is homebound as defined in CMS Chapter 7 Medicare Benefits Manual 30.1.1, The condition of the patient is such that there exists a normal inability to leave home and consequently, leaving home would require a considerable and taxing effort. Oxygen: NA Diet Recommendation: no restrictions on diet Pelaez: Not applicable Activity/Weight Bearing Restrictions: with walker as tolerates - Follow Up Care Current Providers and Referrals: Manav Hoang MD [Primary Care Provider] - As per Instructions Tristen Keene MD [Medical Doctor] - Yumiko Finn MD [Medical Doctor] -
--- NOTE | 2016-06-03 15:56 | PDDCSUM ---
Discharge Summary Discharge Summary: DISCHARGE SUMMARY FOLLOW-UP ITEMS: Discuss SP catheter versus straight cathing with Dr. Finn DATE OF ADMISSION: 05/31/16 DATE OF DISCHARGE: 06/03/2016 DISCHARGE DIAGNOSES: 1. Sepsis 2. Catheter associated urinary tract infection present on arrival 3. E coli bacteremia 4. Acute hyponatremia 5. Chronic coronary artery disease 6. Chronic kidney disease stage 3 CONSULTATIONS: Infectious Disease by Dr. Keene PROCEDURES / IMAGING: None CHIEF COMPLAINT: Acute weakness SUBJECTIVE: Patient feels safe for discharge home, he is transferring safely PHYSICAL EXAM ON DISCHARGE: Systolic blood pressure 1/20, heart rate 70, afebrile overnight, satting well on room air, alert awake oriented x3 no apparent distress, lungs are clear to auscultation bilaterally without any crackles or wheezes LABS ON DISCHARGE: Creatinine 1.3, potassium 3.9, blood cell count 4500, hemoglobin 11.7, blood cultures from 06/02/2016 are no growth to date, EKG QT intervals less than 400 HOSPITAL COURSE BY PROBLEM: 1. Sepsis. Evidenced by sepsis-2 criteria including tachycardia, fever, leukocytosis, clear evidence of infection notably coli bacteremia, resulting in autonomic dysregulation in the setting of infection. Patient received appropriate treatment with IV fluid bolus and empiric IV antibiotics. His leukocytosis resolved. 2. Catheter associated urinary tract infection, present on arrival. Secondary to chronic straight catheterization with resultant introduction of bacteria into the urinary system. The organisms were E coli, pansensitive treated with Invanz. Patient continued straight catheterizations as needed. Recommended that the patient follow up with his primary urologist and discuss whether SP catheters may have a lower rate of associated infections versus continual straight cathing. 3. E coli bacteremia. Secondary to urinary source, status post 4 days of Invanz therapy and negative culture date of 06/02/2016. Patient was seen in consultation by Dr. Keene, he recommended 10 days of subsequent levofloxacin 750 mg daily. Patient will either follow up with his primary care provider or Dr. Keene. 4. Acute hyponatremia. Most likely secondary to hypovolemia in the setting of sepsis, improved with IV fluids. 5. Chronic coronary artery disease. Patient was continued on his home medications. 6. Chronic kidney disease stage 3. Baseline serum creatinine level is around 1.3 , the patient remained his baseline. DISCHARGE MEDICATIONS: Please see official discharge medication reconciliation sheet in chart , levofloxacin 750 mg once daily times 10 subsequent days. DISCHARGE INSTRUCTIONS: Patient will follow up with either Dr. Hoang or Dr. Keene and then Dr. Finn thereafter. TIME SPENT: Greater than 30 minutes were spent on direct patient care, as well as discharge planning and preparation.
== END 2016-06-03 16:27 | disposition home health service (06) | DRG 698 ==
LOC: EDUNIT# → F3N 20:01
PROVIDERS: ADMIT Internal Medicine; ATTEND Internal Medicine
DX: T83.510A Infection and inflammatory reaction due to cystostomy catheter, initial encounter (principal); A41.51 Sepsis due to Escherichia coli [E. coli]; E87.1 Hypo-osmolality and hyponatremia; N18.3 Chronic kidney disease, stage 3 (moderate); G47.33 Obstructive sleep apnea (adult) (pediatric); K21.9 Gastro-esophageal reflux disease without esophagitis; F31.9 Bipolar disorder, unspecified; E03.9 Hypothyroidism, unspecified; I12.9 Hypertensive chronic kidney disease with stage 1 through stage 4 chronic kidney disease, or unspecified chronic kidney disease; E78.5 Hyperlipidemia, unspecified; Z85.51 Personal history of malignant neoplasm of bladder; Z95.5 Presence of coronary angioplasty implant and graft
CPT/HCPCS: 96374; 97116-GP; 97161-GP; 97165-GO; 97535-GO; G8978-GP-CL; G8979-GP-CJ; G8987-GO-CL; G8988-GO-CI; J1335; J1650

== ENCOUNTER → 2016-11-03 | Outpatient (CLI) | payer OTHER ==
[~2016-11-03] MED LIST: GADOBUTROL 10 ML VIAL IVP ONE
== END ==
LOC: FIMAGING 13:46
PROVIDERS: ATTEND Psychiatry & Neurology Neurology
DX: G93.89 Other specified disorders of brain (principal)
CPT/HCPCS: 70553; A9585

== ENCOUNTER → 2016-11-15 | Outpatient (CLI) | payer OTHER | LOC: BMCIMAGING 13:36 | PROVIDERS: ATTEND Psychiatry & Neurology Neurology | DX: I65.21 Occlusion and stenosis of right carotid artery (principal) ==

== ENCOUNTER 2017-09-20 11:27 | Inpatient (IN) | payer OTHER ==
--- NOTE | 2017-09-20 12:28 | EDPHY ---
HPI/HX/ROS/PE/MDM Narrative: CHIEF COMPLAINT: Worsening motor/cognitive abilities, ventricular shunt HPI: The patient is a 77 y/o male with normal pressure hydrocephalus who had a ventricular shunt placed last year and arrives with his for evaluation of worsening motor/cognitive abilities over the last week. His is his primary block breaker operator and reports they have been adjusting the pressure settings on the shunt in an attempt to best control his symptoms. When it is draining too much or too little, he develops similar symptoms to his presentation today. His describes motor difficulties including proprioception, walking, and maneuvering with his "feet glued to the ground." Cognitively, he develops slow processing, confusion, and forgetfulness. Symptoms are aggravated by fatigue. During assessment he prefers not to talk and have his speak on his behalf due to this symptoms. They both deny any recent illness, fever, cough, vomiting, diarrhea, urinary symptoms, or recent trauma. His contacted their neurosurgery PA today and was advised to come to the ED for a head CT. REVIEW OF SYSTEMS: Aside from elements discussed in the HPI, a comprehensive 10-point review of systems was reviewed and is negative. PMH: Normal pressure hydrocephalus with ventricular shunt placed 2017; hygromas SOCIAL HISTORY: Retired cement mason highways and streets. at bedside. [facility] neurosurgery PA Gaudencio Ohara. PHYSICAL EXAM: General:Patient is alert, in no acute distress. ENT:Eyes are normal to inspection. ENT inspection normal. Neck: Normal inspection. Full range of motion. Respiratory:No respiratory distress. Breath sounds normal bilaterally. Cardiovascular: Regular rate and rhythm. Strong peripheral pulses. Normal cap refill. Abdomen:The abdomen is nontender to palpation. There are no peritoneal signs. Back: Normal to inspection. No tenderness to palpation. Skin: Normal color. No rash. Warm and dry. Extremities: Normal appearance. Full range of motion. Neuro: Oriented x3. Normal motor function. Normal sensory function. ED Course: This is a 77 y/o male with NPH post ventral shunt in 2017 who presents with a 1- week history of gradually worsening cognitive and motor abilities. Symptoms are consistent with prior instances of either too much or too little CSF drainage and his neurosurgeon has been adjusting the pressure setting on the shunt in an attempt to reduce symptoms. Due to worsening symptoms, the patient was referred to the ED for evaluation and head CT. No recent trauma nor infectious symptoms. Plan for IV, labs, head CT. CT: hygroma up to 11mm on right, no hemorrhage. Compared to most recent CT in our records, which was prior to shunt placement. Reassessed patient and discussed work up with him and his . She reports the 11mm hygroma is decreased in size from his most recent MRI at [facility]. WBC elevated at 24.59. His says he has required admission previously for sepsis. UA indicates possible UTI though I would expect more significant readings due to his significantly elevated WBC; this has been sent for culture. Patient reports he self-caths. We will also evaluate respiratory infectious causes with a chest x-ray. Due to his elevated WBC and persisting symptoms, I' ve recommended admission for management and further investigation of possible infectious etiology. He and his agree to this plan. I see no signs of pneumonia, septic shock, pyelonephritis, meningitis. - Data Points Imaging Results: Imaging Impressions Head CT 09/20/17 12:40 Impression: Interval placement of a right ventricular shunt with decompression of the lateral ventricles. Bilateral subdural hygromas which are a little larger on the right than the left. Mild periventricular and deep hemispheric white matter change that can be seen with small vessel ischemic disease. Results called and discussed with Chaim Moore MD on 09/20/2017 at 1315 hours. Imaging: Discussed imaging studies w/ inbound call center agent Radiologist, I viewed and interpreted images myself Laboratory Results: Laboratory Results 09/20/17 12:39 09/20/17 12:39 09/20/17 09/20/17 09/20/17 14:30 12:45 12:45 WBC RBC Hgb Hct MCV MCH MCHC RDW Plt Count MPV Neut % (Auto) Lymph % (Auto) Stanley % (Auto) Eos % (Auto) Baso % (Auto) Nucleat RBC Rel Count Absolute Neuts (auto) Absolute Lymphs (auto) Absolute Monos (auto) Absolute Eos (auto) Absolute Basos (auto) Absolute Nucleated RBC Immature Gran % Immature Gran # RBC/WBC/PLT Morphology Platelet Estimate VBG Lactic Acid 1.4 mmol/L mmol/L (0.7-2.1) Sodium Potassium Chloride Carbon Dioxide Anion Gap BUN Creatinine Estimated GFR Glucose Calcium POC Troponin I 0.00 ng/mL ng/mL (0.00-0.08) Urine Color YELLOW Urine Appearance CLEAR Urine pH 6.0 (5.0-7.5) Ur Specific [place] 1.006 (1.002-1.030) Urine Protein NEGATIVE (NEGATIVE) Urine Ketones NEGATIVE (NEGATIVE) Urine Blood 1+ H (NEGATIVE) Urine Nitrate NEGATIVE (NEGATIVE) Urine Bilirubin NEGATIVE (NEGATIVE) Urine Urobilinogen NEGATIVE EU EU (0.2-1.0) Ur Leukocyte Esterase 1+ H (NEGATIVE) Urine RBC 1-3 /hpf /hpf (0-3) Urine WBC 5-10 /hpf H /hpf (0-3) Ur Epithelial Cells NONE SEEN /lpf /lpf (NONE-1+) Urine Bacteria 3+ /hpf H /hpf (NONE SEEN) Urine Glucose NEGATIVE (NEGATIVE) 09/20/17 09/20/17 12:39 12:39 WBC 24.59 10^3/uL H 10^3/uL (3.80-9.50) RBC 4.37 10^6/uL L 10^6/uL (4.40-6.38) Hgb 13.5 g/dL L g/dL (13.7-17.5) Hct 38.4 % L % (40.0-51.0) MCV 87.9 fL fL (81.5-99.8) MCH 30.9 pg pg (27.9-34.1) MCHC 35.2 g/dL g/dL (32.4-36.7) RDW 13.2 % % (11.5-15.2) Plt Count 280 10^3/uL 10^3/uL (150-400) MPV 8.6 fL L fL (8.7-11.7) Neut % (Auto) 89.9 % H % (39.3-74.2) Lymph % (Auto) 5.4 % L % (15.0-45.0) Stanley % (Auto) 3.7 % L % (4.5-13.0) Eos % (Auto) 0.1 % L % (0.6-7.6) Baso % (Auto) 0.2 % L % (0.3-1.7) Nucleat RBC Rel Count 0.0 % % (0.0-0.2) Absolute Neuts (auto) 22.11 10^3/uL H 10^3/uL (1.70-6.50) Absolute Lymphs (auto) 1.33 10^3/uL 10^3/uL (1.00-3.00) Absolute Monos (auto) 0.91 10^3/uL H 10^3/uL (0.30-0.80) Absolute Eos (auto) 0.02 10^3/uL L 10^3/uL (0.03-0.40) Absolute Basos (auto) 0.05 10^3/uL 10^3/uL (0.02-0.10) Absolute Nucleated RBC 0.00 10^3/uL 10^3/uL (0-0.01) Immature Gran % 0.7 % % (0.0-1.1) Immature Gran # 0.17 10^3/uL H 10^3/uL (0.00-0.10) RBC/WBC/PLT Morphology TNP Platelet Estimate TNP VBG Lactic Acid Sodium 126 mEq/L L mEq/L (135-145) Potassium 4.3 mEq/L mEq/L (3.3-5.0) Chloride 95 mEq/L L mEq/L (97-110) Carbon Dioxide 22 mEq/l mEq/l (22-31) Anion Gap 9 mEq/L mEq/L (8-16) BUN 16 mg/dL mg/dL (7-23) Creatinine 0.9 mg/dL mg/dL (0.7-1.3) Estimated GFR > 60 Glucose 117 mg/dL H mg/dL (70-100) Calcium 8.8 mg/dL mg/dL (8.5-10.4) POC Troponin I Urine Color Urine Appearance Urine pH Ur Specific [place] Urine Protein Urine Ketones Urine Blood Urine Nitrate Urine Bilirubin Urine Urobilinogen Ur Leukocyte Esterase Urine RBC Urine WBC Ur Epithelial Cells Urine Bacteria Urine Glucose Medications Given: Discontinued Medications Sodium Chloride (Ns) 500 mls @ 0 mls/hr IV EDNOW ONE; Wide Open PRN Reason: Protocol Stop: 09/20/17 12:40 Last Admin: 09/20/17 13:12 Dose: 500 mls Point of Care Test Results: Chemistry 09/20/17 12:45 POC Troponin I 0.00 ng/mL ng/mL (0.00-0.08) General Time Seen by Provider: 09/20/17 12:08 Initial Vital Signs: Initial Vital Signs Temperature (C) 36.7 C 09/20/17 11:34 Heart Rate 86 09/20/17 11:34 Respiratory Rate 16 09/20/17 11:34 Blood Pressure 131/91 H 09/20/17 11:34 O2 Sat (%) 98 09/20/17 11:34 O2 Delivery Mode Room Air Allergies/Adverse Reactions: Sulfa (Sulfonamide Antibiotics) Allergy (Severe, Verified 09/20/17 11:32) Swelling/neck,face,throat Penicillins Allergy (Mild, Verified 09/20/17 20:57) Rash neomycin [Neomycin] Allergy (Verified 09/20/17 11:32) Rash ENVIRONMENTAL Allergy (Mild, Uncoded 09/20/17 11:32) Other-Enter Comments Home Medications: Medication Instructions Recorded Armodafinil [Nuvigil 250mg] 250 mg PO SUTUTHSA@07 09/24/11 ARIPiprazole [Abilify 2 mg (*)] 1 mg PO DAILY #0 tab 07/02/15 Liothyronine Sodium [Cytomel 5 mcg 5 mcg PO DAILY@1000 #0 tab 07/02/15 (*)] Lisinopril [Zestril 5 mg (*)] 5 mg PO DAILY #0 tab 07/02/15 Atorvastatin Calcium [Lipitor 40 40 mg PO DAILY 08/09/15 mg (*)] QUEtiapine FUMARATE [Seroquel 25 25 mg PO HS 08/09/15 mg (*)] Aspirin EC [Aspirin EC 81 mg (*)] 81 mg PO DAILY 11/15/15 Cholecalciferol Vit D3 [Vitamin D3 5,000 units PO DAILY 11/15/15 (*)] Fluticasone Nasal [Flonase Nasal 2 sprays NASAL DAILY PRN 11/15/15 [place]] Levothyroxine [Synthroid 25 mcg 25 mcg PO DAILY10 11/15/15 (*)] Loratadine [Claritin 10 mg] 10 mg PO DAILY 11/15/15 Multivitamins [Multivitamin (*)] 1 tab PO DAILY 11/15/15 [place]-3 Fatty Acids [Fish Oil 1000 3,000 mg PO DAILY@12 11/15/15 mg (*)] methYLPHENIDATE HCL [Ritalin 10mg 20 mg PO MWF@16 11/15/15 (*)] methYLPHENIDATE HCL [Ritalin 10mg 30 mg PO MWF@07 11/15/15 (*)] Omeprazole 40 mg PO DAILY 05/31/16 Acetaminophen [Tylenol 325mg (*)] 650 mg PO Q4HRS PRN #0 tab 06/03/16 Methenamine Mandelate [METHENAMINE 1 tab PO BID 09/20/17 MANDELATE] levOFLOXACIN [levAQUIN (*)] 750 mg PO DAILY #2 tab 09/22/17 Departure - Departure Disposition: [facility] Inpatient Acute Clinical Impression: Cognitive decline, Weakness, Normal pressure hydrocephalus Condition: Fair Report Scribed for: Chaim Moore Report Scribed by: Daniella Ornelas Date of Report: 09/20/17 Time of Report: 12:29 Physician Review and Approval Statement: Portions of this note were transcribed by an ED scribe. I personally performed the history, physical exam, and medical decision making; and confirm the accuracy of the information in the transcribed note.
[2017-09-20] MEDS ORDERED: NS 500 ML IV ONE (12:39)
[2017-09-20 12:55] LABS: PLATELET COUNT 280 10^3/uL (150-400)
[2017-09-20] MEDS ORDERED: ONDANSETRON DISINTEGRATING 4 MG TAB PO PRN (15:13)
[2017-09-20] MEDS ORDERED: ONDANSETRON 4 MG/2 ML VIAL IVP PRN (15:13)
[2017-09-20] MEDS ORDERED: ACETAMINOPHEN 325 MG TAB PO PRN (15:13)
[2017-09-20] MEDS ORDERED: FLUTICASONE NASAL 120 SPRAYS/16 GM MDI EACHNARE PRN (17:14)
--- NOTE | 2017-09-20 18:13 | GHP ---
[f rep st] HISTORY AND PHYSICAL DATE OF ADMISSION: 09/20/2017 CHIEF COMPLAINT: Confusion, unstable gait. PRIMARY NEUROSURGEON: At [facility]. HISTORY OF PRESENT ILLNESS: A 77-year-old male with a history of NPH, sepsis secondary to UTI, and coronary disease brought in by for increased fatigue and confusion. He was recently seen in his neurosurgeon's clinic, and they adjusted his shunt, too much fluid was removed, and he developed hygromas. They readjusted that 2 weeks ago, and he was advised if having any symptoms should come to the emergency room. noted over the last day increased fatigue, confusion, and being wobbly. He has not had any falls this week, but had a fall last week when leaning over to pet the neighbor's dog. He did not have any loss of consciousness. Denies fevers, chills, or sweats. No nausea, vomiting, diarrhea. No headache. No neck stiffness. He straight caths without issue. He has been constipated. No ill contacts. No cough. No chest pain. No shortness of breath. Presented to the ED for a CT head that showed a right ventricular shunt with decompression of lateral ventricles. Bilateral subdural hygromas. is very concerned of sepsis because he has been in the hospital several times for E coli UTI. He saw his primary urologist for a cystoscopy for bladder cancer follow up, and everything was noted to be okay. REVIEW OF SYSTEMS: I completed a 10-point review of systems. Negative except as noted in HPI. PAST MEDICAL HISTORY: 1. CAD with 3 stents in 2016. 2. Recurrent UTI, E coli with sepsis. 3. History of bladder cancer in 2005. Had a cystoscopy 2 weeks ago, and everything was okay per patient's . 4. CKD. 5. ERIC on CPAP. 6. Hard of hearing. Has hearing aids. 7. Hypothyroidism. 8. Bipolar. PAST SURGICAL HISTORY: Back surgery, cataract surgery. SOCIAL HISTORY: Lives with his in [place]. He was a former smoker. Drinks wine daily. Occasional marijuana. FAMILY HISTORY: Dad with a stroke. Mother at age 98. ALLERGIES: Sulfa, neomycin, penicillin. HOME MEDICATIONS: Ritalin 20 mg and 30 mg ; Seroquel 25 mg q.h.s., omeprazole 40 mg daily, fish oil, multivitamin, methenamine mandelate 1 mg b.i.d., loratadine 10 mg p.o. daily, lisinopril 5 mg daily, liothyronine 5 mcg daily, levothyroxine 25 mcg daily, fluticasone, vitamin D3, atorvastatin 40 mg daily, aspirin 81 mg daily, Nuvigil 250 mg Saturday, Saturday, , Saturday; Tylenol as needed, Abilify 1 mg daily. PHYSICAL EXAMINATION: VITAL SIGNS: Temperature 36.9, blood pressure 115/81, heart rate 70, respirations 15, 95% on room air. GENERAL: Lying in bed, no acute distress. HEENT: PERRLA. Moist mucous membranes. Hard of hearing. Has hearing aids in place. CV: Regular rate and rhythm. No murmurs, gallops, or rubs. LUNGS: Clear. No crackles or wheezing. ABDOMEN: Soft. Mild tenderness right upper and left quadrant, but no rebound or guarding. : No suprapubic tenderness. Says it is uncomfortable due to bladder being full. No CVA tenderness. MUSCULOSKELETAL: Moving all 4 extremities. No tenderness over spine. NEURO: 2 through 12 intact. No meningeal signs. No neck stiffness. PSYCH: He is alert to place, date, month, but not the year. LABORATORIES: WBC is 24, hemoglobin 13, hematocrit 38, platelets 280. Lactate is 1.4. Sodium is 126 (was 124 in August, baseline is 137), potassium 4.3, chloride 95, BUN 16, creatinine 0.9, glucose 117, total bilirubin 0.9, AST 22, ALT 46, conjugated 0.5, albumin 2.8, total protein 5.3. Troponin I-STAT was negative. Chest x-ray is personally reviewed by me. No overt opacities. Could question left lower haziness. CT head. Interval placement of right ventricle shunt with decompression of lateral ventricles. Bilateral subdural hygromas which are larger on the right and left. ASSESSMENT/PLAN: 1. Mildly acute encephalopathy: May be related to his NPH. Neurosurgery was consulted from the emergency room. Does have an elevated white count, but no specific infectious symptoms. Does self cath, has a few whites on his UA. We will send for culture and empirically treat with ceftriaxone given history of E coli. Blood cultures were drawn. 2. Leukocytosis: afebrile. Denies infectious symptoms. Mild pyuria. Blood and urine cultures pending. Cover with Ceftriaxone. Had PCN-allergy listed as severe, but I verified with him today and he said only a rash. Neurosurgery does not think the shunt infected; no meningeal symptoms. 3. Normal pressure hydrocephalus: He is followed by [facility]. 4. Hyponatremia: This was low in August as well. Reports normal p.o. intake. We will check urine osm and sodium. He received 500 cc of normal saline in the emergency room. We will repeat BMP. 5. Coronary artery disease: Resume aspirin and statin. 6. Hypothyroidism: Resume liothyronine and levothyroxine. 7. Allergies: Loratadine, Flonase. 8. Sleep apnea: CPAP. 9. History of bladder cancer: Was recently seen by his urologist and had a normal scope. 10. Bipolar: Resume home medications. 11. Hyperlipidemia: Statin. 12. Chronic back pain: He has had prior laminectomies. No acute back pain or signs on exam. No bony tenderness. 13. Gait instability: PT and OT. This is related to his NPH. 14. Diet: Regular disposition. 15. Deep vein thrombosis prophylaxis: SCDs. DISPOSITION: Patient warrants inpatient admission given gait instability, leukocytosis warranting culture data, IV antibiotics, and Neurosurgery consultation. /[id number]/MODL MTDD
--- NOTE | 2017-09-20 19:23 | GCON ---
[f rep st] CONSULTATION DATE OF CONSULTATION: 09/20/2017 HISTORY OF PRESENT ILLNESS: The patient is a 77-year-old male who presents to the ED today for worsening motor and cognitive symptoms over the past week. He has a past medical history significant for urinary retention involving chronic straight cathing, history of 3 sepsis, urinary tract infections over the past 2 years as well as normal pressure hydrocephalus with a Codman Certas shunt placed in February of 2017. The patient's provides most of the history. However, the patient does contribute some to his history. He stated the symptoms have slowly been getting worse over the last week, and when speaking to the PA who normally manages his shunt, he was asked to come to the emergency room to get a CT to make sure that he did not develop brain bleed. He did recently develop bilateral hygromas due to the shunt overdraining his ventricles. His states that the shunt was changed from 2-3 several weeks ago, and per read of the CT, the hygromas are actually improved, however, still large in appearance. The patient also states upon arrival, he had a low-grade fever. He has had no incision issues and no other issues with the function of his shunt. He is normally followed by [facility], Gaudencio Ohara who can be reached at [phone] with any questions about his care. The patient also has an ongoing problem with his right rotator cuff and has been receiving steroid injections in his shoulders. Last injection was approximately 2 weeks ago, but he endorses no increase in pain, burning, or redness in his shoulder. PAST MEDICAL HISTORY: Includes history of spinal stenosis with neurogenic claudication, sepsis 3 times in the last 2 years, hyponatremia, history of UTIs , history of cognitive decline, weakness, and a history of normal pressure hydrocephalus. PAST SURGICAL HISTORY: Lumbar laminectomy in 2016 and placement of Codman Certas shunt in February of 2017. Had cataract surgery. SOCIAL HISTORY: The patient lives with his , live independently. The patient is a retired highway maintenance crew worker. REVIEW OF SYSTEMS: Positive for some dizziness and nausea, low-grade fever, also complained of motor deficits. Other positive findings noted in the HPI. No pulmonary issues. A little bit of constipation, but no other issues. HOME MEDICATIONS: Include Tylenol 650 mg every 4 hours as needed, Abilify 1 mg daily, Flonase 2 sprays nasally daily as needed, vitamin D3 5000 units p.o., atorvastatin 40 mg p.o., aspirin 81 mg daily, Nuvigil 250 mg daily, quetiapine 25 mg p.o. nightly, omeprazole 40 mg daily, omega-3 3000 mg daily, daily multivitamin, Claritin 10 mg daily, lisinopril 5 mg daily, liothyronine 5 mcg daily, Synthroid 25 mcg daily, Ritalin 20 or 30 mg every morning and 20 mg every afternoon, methenamine mandelate 1 mg p.o. b.i.d. NEUROLOGICAL PHYSICAL EXAMINATION: VITAL SIGNS: Last blood pressure 115/81, heart rate 71, respiratory rate 15, 95% on room air, temperature 36.9 degrees Celsius. GENERAL: He is alert and oriented x3. He appears in no acute distress. NEUROLOGIC: His extraocular movements are intact. His pupils are equal and reactive to light. His cranial nerves 2-12 appear grossly intact. He has no facial droop. His incision posteriorly is well healed. He moves all extremities x4. He has 5/5 strength in bilateral upper and lower extremities. He does have some difficulty raising his shoulder on his right arm, but otherwise grossly normal. His sensation is intact to light touch. His coordination appears intact with accurate [id number] movements in bilateral hands. Speech is clear and fluent. He has a nonfocal neurological exam. ASSESSMENT AND PLAN: This is a 77-year-old male with a history of urinary retention requiring straight catheterization, a history of urinary tract infection, sepsis, and normal pressure hydrocephalus for which a Codman Certas shunt was placed in February of 2017. His shunt was recently overdraining and he developed bilateral hygromas which is improved per report of imaging read, however, they are still significant. Given that his shunt is typically managed by a different group and is improving, it is likely not causing his decline and symptoms. We believe that he should continue workup for source of the elevated white count and malaise as we do not think it is currently related to his shunt. We will refer to his normal neurosurgery group for continued management of his shunt, he already has followup scheduled with them toward the end of the month. Neurosurgery will continue to follow along until source of his infection is confirmed. Thank you for this consultation. The patient was seen in the emergency room by myself and Dr. Spenser Winslow. /[id number]/[facility]L [facility]
[2017-09-20] MEDS ORDERED: METHENAMINE HIPP 1 GM TAB PO SCH ×2 (21:00)
[2017-09-20] MEDS: QUEtiapine FUMARATE 25 MG TAB PO SCH (21:41)
[2017-09-20] MEDS: METHENAMINE HIPP 1 GM TAB PO SCH (21:41)
--- NOTE | 2017-09-20 22:29 | PDMN ---
Medical Necessity Medical necessity: C/M review: est. > 2 MN LOS for eval and TX of mildly acute encephalopathy - may be related to normal pressure hydrocephalus, increased fatigue and confusion, leukocytosis - blood and urine cultures pending, gait instability related to normal pressure hydrocephalus, hyponatremia, requiring Neurosurgery consult, IV Ceftriaxone, acute inpt PT/OT, comorbid normal pressure hydrocephalus, CAD S/P 3 stents in 2016, , hypothyroidism, obstructive sleep apnea on CPAP, bipolar, hyperlipidemia, chronic back pain, history of bladder cancer, recurrent UTI, E. coli with sepsis, chronic kidney disease, hard of hearing - patient has hearing aids per H/P.
[2017-09-20] MEDS ORDERED: NS 1,000 ML IV SCH (23:15)
[2017-09-21] MEDS: Armodafinil [Nuvigil] 250 MG PO SCH (06:41)
[2017-09-21] MEDS: ARIPiprazole 2 MG TAB PO SCH (09:25)
[2017-09-21] MEDS: ASPIRIN EC 81 MG TAB PO SCH (09:26)
[2017-09-21] MEDS: CETIRIZINE 10 MG TAB PO SCH (09:26)
[2017-09-21] MEDS: ATORVASTATIN CALCIUM 40 MG TAB PO SCH (09:26)
[2017-09-21] MEDS: MULTIVITAMINS 1 EACH TAB PO SCH (09:27)
[2017-09-21] MEDS: CHOLECALCIFEROL VIT D3 1,000 UNITS TAB PO SCH (09:27)
[2017-09-21] MEDS: METHENAMINE HIPP 1 GM TAB PO SCH ×2 (09:27→21:55)
[2017-09-21] MEDS: PANTOPRAZOLE SODIUM 40 MG TAB PO SCH (09:27)
[2017-09-21] MEDS ORDERED: LEVOTHYROXINE 25 MCG TAB PO SCH (10:00)
[2017-09-21] MEDS ORDERED: LIOTHYRONINE SODIUM 5 MCG TAB PO SCH (10:00)
--- NOTE | 2017-09-21 11:14 | ASMTCMCOM ---
CM Note CM Note Notes: Pt admitted for NPH and leukocytosis. PT/OT cleared pt but source of infection not identified yet. CM will continue to follow if reese are DC needs. Date Signed: 09/21/2017 11:13 AM Electronically Signed By:Gabriela Araiza LCSW
[2017-09-21] MEDS ORDERED: OMEGA-3 FATTY ACIDS 1,000 MG CAP PO SCH (12:00)
--- NOTE | 2017-09-21 12:47 | NEUSURGPN ---
Assessment/Plan: 77M with ARTIFICIAL BREAST FABRICATOR shunt, b/l hygromas admitted for AMS. hygromas improved in size on recent CT after recent shunt adjustment, no signs of SDH. -so not suspect any issue with shunt causing AMS, shunt management per [facility] outpatient team -MS improved after 24hour abx and WBC downward trending -urine cultures Positive for gram negative rods -NS will sign off at this time dw Dr. cloud. Subjective: up in chair. feeling better. no headaches,nausea,dizziness. at bedside. Objective: VSS NAD EOMI, PEARLA speech clear and fluent CNii-xii grossly intact MAExr, no pronator drift strength full SILT Catheter Insertion Date: 09/21/17 - Physician Discussed Patient with : [facility] Neurosurgery Physical Exam - Vitals, I&O, Labs I and O 09/20/17 09/21/17 09/22/17 05:59 05:59 05:59 Intake Total 1290 240 Output Total 2200 750 Balance -910 -510 Weight 70.307 kg Intake: Oral (ml) 250 240 IV Infused (ml) 1040 Ns 1,000 ml @ 100 mls/hr 440 IV CONT HUMA Rx#: [id number] Output: Urine (ml) 2200 750 Catheter 800 750 Other: Intake Quantity Yes Yes Sufficient Number of Voids Catheter 1 1 Toilet 1 Vital Signs Temp Pulse Resp BP Pulse Ox 36.6 C 72 16 101/84 H 96 09/21/17 12:00 09/21/17 12:00 09/21/17 12:00 09/21/17 12:00 09/21/17 12:00 Laboratory Results 09/21/17 05:52 09/21/17 05:52 ICD10 Worksheet Patient Problems: Problems Problem Status Onset Cognitive decline Acute Normal pressure hydrocephalus Acute Weakness Acute Hyponatremia Acute Severe sepsis Acute Spinal stenosis, lumbar region, with neurogenic claudication Acute Urinary tract infection Acute
--- NOTE | 2017-09-21 12:52 | HOSPPROG ---
Hospitalist Progress Note Assessment/Plan: Patient is a 77 y/o male who was brought to the ER for confusion and unstable gait. Today is my first encounter w the patient, chart reviewed. *Mild acute encephalopathy -appreciate Neurosurgery seeing him -they do not think this is r/t to NPH or adjustment of the shunt -CT of head shows placement of r ventricle shunt w decompression of lateral ventricles. Bilateral subdural hygromas which are larger on the r and l - at bedside and said he is back to his baseline *Leukocytosis -no fever -wbc improved -could be from a uti -awaiting blood cx *Pyuria -patient self-caths -urine cx showing gram neg rods -cont ceftriaxone -he has a hx of recurrent UTI, e coli w sepsis -previous cx were sensitive to Ceftriaxone *Hyponatremia -resolved *CAD -asa and statin *bipolar -home meds resumed *Plan: will f/u with blood cx, repeat CBC, and with urine cx. If stable, will dc in the morning. Subjective: Elan is feeling much better. Objective: Vital Signs Temp Pulse Resp BP Pulse Ox 36.6 C 72 16 101/84 H 96 09/21/17 12:00 09/21/17 12:00 09/21/17 12:00 09/21/17 12:00 09/21/17 12:00 Laboratory Results 09/21/17 05:52 09/21/17 05:52 09/20/17 09/21/17 09/22/17 05:59 05:59 05:59 Intake Total 1290 240 Output Total 2200 750 Balance -910 -510 - Physical Exam Constitutional: no apparent distress, appears nourished, not in pain Eyes: PERRL Ears, Nose, Mouth, Throat: hearing normal Cardiovascular: regular rate and rhythym Respiratory: no respiratory distress Gastrointestinal: normoactive bowel sounds Skin: warm, normal color Musculoskeletal: full muscle strength Neurologic: AAOx3 Psychiatric: interacting appropriately ICD10 Worksheet Patient Problems: Problems Problem Status Onset Cognitive decline Acute Normal pressure hydrocephalus Acute Weakness Acute Hyponatremia Acute Severe sepsis Acute Spinal stenosis, lumbar region, with neurogenic claudication Acute Urinary tract infection Acute
[2017-09-21] MEDS: LISINOPRIL 5 MG TAB PO SCH (13:44)
[2017-09-21] MEDS: QUEtiapine FUMARATE 25 MG TAB PO SCH (21:56)
[2017-09-22 05:09] LABS: PLATELET COUNT 316 10^3/uL (150-400)
[2017-09-22 08:07] VITALS: BP 120/57
[2017-09-22] MEDS: MULTIVITAMINS 1 EACH TAB PO SCH (08:17)
[2017-09-22] MEDS: PANTOPRAZOLE SODIUM 40 MG TAB PO SCH (08:17)
[2017-09-22] MEDS: Armodafinil [Nuvigil] 250 MG PO SCH (08:20)
[2017-09-22] MEDS: CHOLECALCIFEROL VIT D3 1,000 UNITS TAB PO SCH (08:20)
[2017-09-22] MEDS: CETIRIZINE 10 MG TAB PO SCH (08:24)
[2017-09-22] MEDS: LISINOPRIL 5 MG TAB PO SCH (08:26)
[2017-09-22] MEDS: METHENAMINE HIPP 1 GM TAB PO SCH (08:26)
[2017-09-22] MEDS: ASPIRIN EC 81 MG TAB PO SCH (08:29)
[2017-09-22] MEDS: ATORVASTATIN CALCIUM 40 MG TAB PO SCH (08:29)
[2017-09-22] MEDS: ARIPiprazole 2 MG TAB PO SCH (08:33)
--- NOTE | 2017-09-22 08:50 | HOSPPROG ---
Hospitalist Progress Note Assessment/Plan: Patient is a 77 y/o male who was brought to the ER for confusion and unstable gait. *Mild acute encephalopathy -appreciate Neurosurgery seeing him -they do not think this is r/t to NPH or adjustment of the shunt -CT of head shows placement of r ventricle shunt w decompression of lateral ventricles. Bilateral subdural hygromas which are larger on the r and l - at bedside and said he is back to his baseline *Leukocytosis -no fever -wbc improved -pending blood cx shows not growth *UTI, klebsiella -patient self-caths -initially treated w Ceftriaxone -he has a hx of recurrent UTI, e coli w sepsis -will dc on levaquin *Hyponatremia -resolved *CAD -asa and statin *bipolar -home meds resumed *Plan: dc home, reviewed side effects of Levaquin Subjective: Ronal is feeling well today, no complaints. Objective: Vital Signs Temp Pulse Resp BP Pulse Ox 37.1 C 74 16 120/57 L 95 09/22/17 08:00 09/22/17 08:00 09/22/17 08:00 09/22/17 08:26 09/22/17 08:00 Laboratory Results 09/22/17 04:22 09/21/17 05:52 09/21/17 09/22/17 09/23/17 05:59 05:59 05:59 Intake Total 1290 390 Output Total 2200 750 Balance -910 -360 - Physical Exam Constitutional: no apparent distress, appears nourished, not in pain Eyes: PERRL Ears, Nose, Mouth, Throat: hearing normal Cardiovascular: regular rate and rhythym Respiratory: no respiratory distress Skin: warm Musculoskeletal: full muscle strength Neurologic: AAOx3 Psychiatric: interacting appropriately ICD10 Worksheet Patient Problems: Problems Problem Status Onset Cognitive decline Acute Normal pressure hydrocephalus Acute Weakness Acute Hyponatremia Acute Severe sepsis Acute Spinal stenosis, lumbar region, with neurogenic claudication Acute Urinary tract infection Acute
[2017-09-22] MEDS ORDERED: ARIPiprazole 2 MG TAB PO SCH (09:00)
--- NOTE | 2017-09-22 12:32 | ASDISCHSUM ---
Discharge Information Plan Status:Home with No Needs Medically Cleared to Leave:09/22/2017 Discharge Date:09/22/2017 10:42 AM CM D/C Disposition:Home, Routine, Self-Care ADT D/C Disposition:Home, Routine, Self-Care Projected Discharge Date:09/22/2017 10:42 AM Transportation at D/C:Family Discharge Delay Reason: Follow-Up Date:09/22/2017 10:42 AM Discharge Slot: Final Diagnosis: Placement Information Patient Contact Information Contact Name:JOHN Relationship: Address:[facility] [address] City:[place] Alternate Phone: State/Zip Code:[place] [address] Email: Financial Information Financial Class:Medicare Primary Plan Desc:MEDICARE INPATIENT Primary Plan Number:[id number] Secondary Plan Desc:[facility] Secondary Plan Number:[id number] Assessment Information BC CM Progress Note CM Note CM Note Notes: Pt admitted for NPH and leukocytosis. PT/OT cleared pt but source of infection not identified yet. CM will continue to follow if reese are DC needs. Date Signed: 09/21/2017 11:13 AM Electronically Signed By:Gabriela Araiza LCSW LACE LACKerry Length of stay for Answers: 2 days current admission Acuity / Level of Answers: Yes Care: Did the patient have an inpatient admission? Comorbidities - select Answers: Any tumor (including all that apply lymphoma or leukemia) Coronary Artery Disease Mild liver or renal disease Other Notes: normal pressure hydrocephalus with ventricular shunt place d 2017, hygromas # of Emergency department Answers: 1-2 visits in the last 6 months Social determinants Answers: Mental health diagnosis (anxiety, depression, pers onality disorders, etc.) Score: 16 Date Signed: 09/22/2017 12:31 PM Electronically Signed By:TRESSA Forbes Case Management Discharge Plan Note Case Management Discharge Discharge Order Complete? Answers: Yes Patient to Obtain Answers: via Family Medications Transportation Arranged Answers: Family/Friends Discharge Comments Notes: Pt is medically cleared for d/c home today with family and no CM needs. Date Signed: 09/22/2017 12:29 PM Electronically Signed By:TRESSA Forbes Intervention Information
--- NOTE | 2017-09-22 12:45 | GDS ---
[f rep st] DISCHARGE SUMMARY DISCHARGE DIAGNOSES: 1. Mild acute encephalopathy. 2. Urinary tract infection. 3. Leukocytosis. 4. Hyponatremia. 5. Coronary disease. 6. Bipolar disorder. HISTORY OF PRESENT ILLNESS: Briefly, the patient is a 77-year-old male with a history of NPH, sepsis secondary to UTI and coronary artery disease. He was brought into the emergency room by his yennifer r increased fatigue and confusion. He was seen recently by his neurosurgeon clinic in [facility]. His shunt was adjusted and too much removed and he developed hygromas. They re-adjusted that 2 weeks ago, and he was advised if he had any symptoms to come to the ER. He had a CT of his head that show ed a right ventricular shunt with decompression of the lateral ventricles. Bilateral subdural hygrom as. He was admitted and seen by Neurosurgery. He is markedly improved. His symptoms were secondary to urinary tract infection. He will follow up with his Neurosurgery down in the [facility]. CONSULTATION: Temo Pina, physician tax accounting assistant with neurosurgical services. HOSPITAL COURSE: 1. Mild acute encephalopathy, resolved. 2. Lower urinary tract infection. Urine culture showed Klebsiella. The patient does self-cath and is on suppressive therapy. He was initially treated with ceftriaxone. We will discharge him on Leva rosemarie for 2 more days. 3. Leukocytosis, much improved. He has no fever. Pending blood culture showed no growth. 4. Hyponatremia, resolved. 5. Coronary artery disease, on aspirin, statin therapy. 6. Bipolar. Home medications resumed. DISCHARGE CONDITION: Stable. Blood pressure is 120/57, heart rate 74, respiratory rate of 16, O2 sa turation on room air 95%, temperature is 37.1 Celsius. DISCHARGE MEDICATIONS: Please see the EMR. DISCHARGE INSTRUCTIONS: 1. To follow up with his primary care provider in 1-2 weeks. 2. To follow up with Neurosurgery in the [facility]. 3. If he develops fever or chills, to return to the ER. /[id number]/MODL
== END 2017-09-22 10:42 | disposition home or self-care (01) | DRG 71 ==
LOC: F3N 17:52
PROVIDERS: ADMIT Internal Medicine; ATTEND Internal Medicine
DX: G93.40 Encephalopathy, unspecified (principal); N39.0 Urinary tract infection, site not specified; E87.1 Hypo-osmolality and hyponatremia; G91.2 (Idiopathic) normal pressure hydrocephalus; Z98.2 Presence of cerebrospinal fluid drainage device; D72.829 Elevated white blood cell count, unspecified; D18.1 Lymphangioma, any site; I25.10 Atherosclerotic heart disease of native coronary artery without angina pectoris; G47.33 Obstructive sleep apnea (adult) (pediatric); N18.9 Chronic kidney disease, unspecified; E03.9 Hypothyroidism, unspecified; E78.5 Hyperlipidemia, unspecified; F31.9 Bipolar disorder, unspecified; M54.9 Dorsalgia, unspecified; R26.9 Unspecified abnormalities of gait and mobility; Z95.5 Presence of coronary angioplasty implant and graft; Z87.440 Personal history of urinary (tract) infections; Z85.51 Personal history of malignant neoplasm of bladder
CPT/HCPCS: 84484-PO; 97161-GP; 97165-GO; G8978-GP-CI; G8979-GP-CI; G8980-GP-CI; G8987-GO-CI; G8988-GO-CI; G8989-GO-CI; J0696

== ENCOUNTER → 2017-10-03 | Outpatient (CLI) | payer OTHER | LOC: FIMAGING 11:17 | PROVIDERS: ATTEND Internal Medicine Cardiovascular Disease | DX: I25.10 Atherosclerotic heart disease of native coronary artery without angina pectoris (principal); E78.2 Mixed hyperlipidemia; I10 Essential (primary) hypertension; I77.9 Disorder of arteries and arterioles, unspecified ==

== ENCOUNTER → 2017-10-28 | Outpatient (CLI) | payer OTHER | LOC: BMCIMAGING 13:42 | PROVIDERS: ATTEND Internal Medicine | DX: M79.604 Pain in right leg (principal); M79.89 Other specified soft tissue disorders ==

== ENCOUNTER → 2017-11-14 | Outpatient (CLI) | payer OTHER | LOC: BMCIMAGING 16:12 | PROVIDERS: ATTEND Internal Medicine | DX: M79.662 Pain in left lower leg (principal); M79.661 Pain in right lower leg | CPT/HCPCS: 74177; 93970; Q9967 ==

== ENCOUNTER → 2018-01-29 | Outpatient (CLI) | payer OTHER | LOC: BMCIMAGING 12:35 | PROVIDERS: ATTEND Internal Medicine | DX: M85.871 Other specified disorders of bone density and structure, right ankle and foot (principal) ==

== ENCOUNTER 2018-05-11 12:39 | Emergency (ER) | payer OTHER ==
--- NOTE | 2018-05-11 12:54 | EDPHY ---
H & P Stated Complaint: Recent Ear Infection and Antibiotics, Now With Nausea and High BP Time Seen by Provider: 05/11/18 12:53 HPI/ROS: CHIEF COMPLAINT: Nausea, elevated blood pressure HISTORY OF PRESENT ILLNESS: The patient is referred to the emergency department for evaluation of nausea and elevated blood pressure. The patient recently was treated with antibiotics for an ear infection. He stop taking his medications several days ago. He has continued to have some nausea and decreased appetite. The patient was noted to be mildly hypertensive prompting his referral to the ED. The patient complains of a mild frontal headache. He denies any history of fall or trauma. He denies any acute numbness or weakness. REVIEW OF SYSTEMS: A comprehensive 10 point review of systems is otherwise negative aside from elements mentioned in the history of present illness. Source: Patient Exam Limitations: No limitations - Personal History Current Tetanus Diphtheria and Acellular Pertussis (TDAP): Yes Tetanus Vaccine Date: unsure - Medical/Surgical History Hx Asthma: No Hx Chronic Respiratory Disease: No Hx Diabetes: No Hx Cardiac Disease: Yes Hx Renal Disease: No Hx Cirrhosis: No Hx Alcoholism: No Hx HIV/AIDS: No Hx Splenectomy or Spleen Trauma: No Other PMH: borderline Bipolar, Hyperlipidemia, HTN, back surgery L3-5, sepsis x 3, hypothyroid, bladder dysfunction, bladder ca -surgically removed, interstitial cystitis/cardiac stents1, vent shunt - Social History Smoking Status: Former smoker - Physical Exam Exam: General Appearance: Alert, no distress Eyes: Pupils equal and round no pallor or injection, TM's clear bilaterally ENT, Mouth: Mucous membranes moist Respiratory: There are no retractions, lungs are clear to auscultation Cardiovascular: Regular rate and rhythm Gastrointestinal: Abdomen is soft and nontender, no masses, bowel sounds normal Neurological: A&O, normal motor function, normal sensory exam, normal cranial nerves Skin: Warm and dry, no rashes Musculoskeletal: Neck is supple nontender Extremities: symmetrical, full range of motion Psychiatric: Patient is oriented X 3, there is no agitation Constitutional: Initial Vital Signs Temperature (C) 36.8 C 05/11/18 12:41 Heart Rate 64 05/11/18 12:41 Respiratory Rate 18 05/11/18 12:41 Blood Pressure 174/105 H 05/11/18 12:41 O2 Sat (%) 93 05/11/18 12:41 O2 Delivery Mode Room Air Allergies/Adverse Reactions: Sulfa (Sulfonamide Antibiotics) Allergy (Severe, Verified 05/11/18 12:41) Swelling/neck,face,throat Penicillins Allergy (Mild, Verified 05/11/18 12:41) Rash neomycin [Neomycin] Allergy (Verified 05/11/18 12:41) Rash ENVIRONMENTAL Allergy (Mild, Uncoded 09/20/17 11:32) Other-Enter Comments Home Medications: Medication Instructions Recorded Armodafinil [Nuvigil 250mg] 250 mg PO SUTUTHSA@07 09/24/11 ARIPiprazole [Abilify 2 mg (*)] 1 mg PO DAILY #0 tab 07/02/15 Liothyronine Sodium [Cytomel 5 mcg 5 mcg PO DAILY@1000 #0 tab 07/02/15 (*)] Lisinopril [Zestril 5 mg (*)] 5 mg PO DAILY #0 tab 07/02/15 Atorvastatin Calcium [Lipitor 40 40 mg PO DAILY 08/09/15 mg (*)] QUEtiapine FUMARATE [Seroquel 25 25 mg PO HS 08/09/15 mg (*)] Aspirin EC [Aspirin EC 81 mg (*)] 81 mg PO DAILY 11/15/15 Cholecalciferol Vit D3 [Vitamin D3 5,000 units PO DAILY 11/15/15 (*)] Fluticasone Nasal [Flonase Nasal 2 sprays NASAL DAILY PRN 11/15/15 [place]] Levothyroxine [Synthroid 25 mcg 25 mcg PO DAILY10 11/15/15 (*)] Loratadine [Claritin 10 mg] 10 mg PO DAILY 11/15/15 Multivitamins [Multivitamin (*)] 1 tab PO DAILY 11/15/15 [place]-3 Fatty Acids [Fish Oil 1000 3,000 mg PO DAILY@12 11/15/15 mg (*)] methYLPHENIDATE HCL [Ritalin 10mg 20 mg PO MWF@16 11/15/15 (*)] methYLPHENIDATE HCL [Ritalin 10mg 30 mg PO MWF@07 11/15/15 (*)] Omeprazole 40 mg PO DAILY 05/31/16 Acetaminophen [Tylenol 325mg (*)] 650 mg PO Q4HRS PRN #0 tab 06/03/16 Methenamine [place] [METHENAMINE 1 tab PO BID 09/20/17 MANDELATE] levOFLOXACIN [levAQUIN (*)] 750 mg PO DAILY #2 tab 09/22/17 Ondansetron Odt [Zofran Odt] 4 mg PO Q4PRN PRN #20 tab 05/11/18 Medical Decision Making - Diagnostics EKG Interpretation: EKG: Complete interpretation has been separately recorded in the [employer] archive. Summary impression: Sinus rhythm, rate 58 ED Course/Re-evaluation: The patient had an IV established. He received 4 mg of Zofran and a L of normal saline. He presents to the ED primarily with symptoms related to nausea. This is likely been precipitated by recent antibiotic use. He has no complaints of chest pain or shortness of breath. The patient is noted to have mild hyponatremia which is chronic finding for the patient. While in the emergency department the patient's blood pressure normalized without intervention. I re-evaluated the patient at 3:00 p.m. and he is currently asymptomatic. The patient is tolerating p.o.'s and would like to be discharged home. He will be given a prescription for Zofran. The patient is given customary aftercare instructions and return precautions. Differential Diagnosis: Differential diagnosis considered includes hypertensive emergency, arrhythmia, acute coronary syndrome, medication side effect, dehydration - Data Points Laboratory Results: Laboratory Results 05/11/18 13:50 05/11/18 13:50 05/11/18 05/11/18 13:50 13:50 WBC 7.42 10^3/uL 10^3/uL (3.80-9.50) RBC 5.09 10^6/uL 10^6/uL (4.40-6.38) Hgb 16.0 g/dL g/dL (13.7-17.5) Hct 45.3 % % (40.0-51.0) MCV 89.0 fL fL (81.5-99.8) MCH 31.4 pg pg (27.9-34.1) MCHC 35.3 g/dL g/dL (32.4-36.7) RDW 12.6 % % (11.5-15.2) Plt Count 351 10^3/uL 10^3/uL (150-400) MPV 8.4 fL L fL (8.7-11.7) Neut % (Auto) 75.4 % H % (39.3-74.2) Lymph % (Auto) 17.4 % % (15.0-45.0) [place] % (Auto) 5.5 % % (4.5-13.0) Eos % (Auto) 0.8 % % (0.6-7.6) Baso % (Auto) 0.4 % % (0.3-1.7) Nucleat RBC Rel Count 0.0 % % (0.0-0.2) Absolute Neuts (auto) 5.59 10^3/uL 10^3/uL (1.70-6.50) Absolute Lymphs (auto) 1.29 10^3/uL 10^3/uL (1.00-3.00) Absolute Monos (auto) 0.41 10^3/uL 10^3/uL (0.30-0.80) Absolute Eos (auto) 0.06 10^3/uL 10^3/uL (0.03-0.40) Absolute Basos (auto) 0.03 10^3/uL 10^3/uL (0.02-0.10) Absolute Nucleated RBC 0.00 10^3/uL 10^3/uL (0-0.01) Immature Gran % 0.5 % % (0.0-1.1) Immature Gran # 0.04 10^3/uL 10^3/uL (0.00-0.10) Sodium 128 mEq/L L mEq/L (135-145) Potassium 4.6 mEq/L mEq/L (3.5-5.2) Chloride 96 mEq/L L mEq/L (97-110) Carbon Dioxide 24 mEq/l mEq/l (22-31) Anion Gap 8 mEq/L mEq/L (6-14) BUN 13 mg/dL mg/dL (7-23) Creatinine 1.1 mg/dL mg/dL (0.7-1.3) Estimated GFR > 60 Glucose 116 mg/dL H mg/dL (70-100) Calcium 9.8 mg/dL mg/dL (8.5-10.4) Troponin I < 0.012 ng/mL ng/mL (0.000-0.034) Medications Given: Discontinued Medications Sodium Chloride (Ns) 1,000 mls @ 0 mls/hr IV EDNOW ONE; Wide Open PRN Reason: Protocol Stop: 05/11/18 12:58 Last Admin: 05/11/18 13:35 Dose: 1,000 mls Ondansetron HCl (Zofran) 4 mg IVP EDNOW ONE Stop: 05/11/18 12:58 Last Admin: 05/11/18 13:35 Dose: 4 mg Departure - Departure Disposition: Home, Routine, Self-Care Clinical Impression: Nausea, Hypertension Condition: Good Instructions: Acute Nausea and Vomiting (ED) Additional Instructions: 1. Testing done in the emergency department today demonstrates no acute abnormality. 2. Your blood pressure has normalized. Your EKG and cardiac testing is also unremarkable. 3. Zofran as needed for nausea. 4. Return to the ED for any worsening symptoms or other concerns. 5. Follow up with your primary care provider as scheduled. Referrals: Manav Hoang MD [Primary Care Provider] - As per Instructions Prescriptions: Ondansetron Odt [Zofran Odt] 4 mg PO Q4PRN PRN #20 tab PRN Reason: For Nausea
[2018-05-11] MEDS ORDERED: NS 1,000 ML IV ONE (12:57)
[2018-05-11] MEDS ORDERED: ONDANSETRON 4 MG/2 ML VIAL IVP ONE (12:57)
--- NOTE | 2018-05-11 13:19 | CPEKG ---
Test Reason : OPEN Blood Pressure : / mmHG Vent. Rate : 058 BPM Atrial Rate : 059 BPM P-R Int : 156 ms QRS Dur : 086 ms QT Int : 418 ms P-R-T Axes : -04 038 056 degrees QTc Int : 411 ms Sinus rhythm Confirmed by Reg Solares ([id number]) on 05/11/2018 1:19:10 PM Referred By: Reg Solraes Confirmed By:Reg Solares
[2018-05-11 14:02] LABS: PLATELET COUNT 351 10^3/uL (150-400)
[2018-05-11 15:04] VITALS: BP 158/75
== END 2018-05-11 15:10 | disposition home or self-care (01) ==
DX: R11.0 Nausea (principal); I10 Essential (primary) hypertension; E86.9 Volume depletion, unspecified
CPT/HCPCS: 96374